=== PATIENT | female | born 1935 | race Caucasian/White ===

== ENCOUNTER 2016-09-16 11:50 | Emergency (ER) | payer MEDICARE, OTHER ==
[2016-09-16 12:06] VITALS: BP 108/58
--- NOTE | 2016-09-16 12:31 | EDM.PDOC ---
ED HPI GENERAL MEDICAL PROBLEM - General Chief Complaint: General Stated Complaint: FALLS Time Seen by Provider: 09/16/16 12:19 Source of Information: Reports: Patient History Limitations: Reports: No limitations - History of Present Illness INITIAL COMMENTS - FREE TEXT/NARRATIVE: Patient and her son report her having fallen 3 times last week, with the last time being Friday. She was reportedly told to come in to rule out an ischemic event. She is here today. She denies any chest pain, no SOB, no change or LOC. She was reportedly working with OT at the time of her right sided weakness. She has chronic lower back and right hip pain. I did see her in early August of 2016 for hip and back pain which resulted in limited mobility. She does still live in assisted living at [facility]. Primary doctor is Albertina Barragan at [facility]. She also reports low systolic blood pressure from time to time. She takes metoprolol BID. Onset: other (chronic) Onset Date: 09/13/16 Duration: Chronic Quality: Reports: Other Severity: moderate Improves with: Reports: None Worsens with: Reports: Movement Context: Reports: Activity Associated Symptoms: Reports: other - Related Data Allergies Allergy/AdvReac Type Severity Reaction Status Date / Time acetaminophen Allergy Cannot Verified 09/16/16 12:09 [From Lorcet ] Remember acyclovir [From Zovirax] Allergy Cannot Verified 09/16/16 12:09 Remember acyclovir sodium Allergy Cannot Verified 09/16/16 12:09 [From Zovirax] Remember amitriptyline HCl Allergy Cannot Verified 09/16/16 12:09 [From Elavil] Remember cephalexin [Cephalexin] Allergy Swollen Verified 09/16/16 12:09 Tongue dexamethasone Allergy Cannot Verified 09/16/16 12:09 Remember doxepin [Doxepin] Allergy Rash Verified 09/16/16 12:09 erythromycin base Allergy Cannot Verified 09/16/16 12:09 [Erythromycin Base] Remember haloperidol [From Haldol] Allergy Cannot Verified 09/16/16 12:09 Remember haloperidol lactate Allergy Cannot Verified 09/16/16 12:09 [From Haldol] Remember hydrochlorothiazide Allergy Cannot Verified 09/16/16 12:09 Remember hydrocodone bitartrate Allergy Cannot Verified 09/16/16 12:09 [From Lorcet ] Remember levofloxacin [From Levaquin] Allergy Cannot Verified 09/16/16 12:09 Remember lidocaine Allergy Rash Verified 09/16/16 12:09 pantoprazole sodium Allergy Cannot Verified 09/16/16 12:09 [From Protonix] Remember Penicillins Allergy Cannot Verified 09/16/16 12:09 Remember terfenadine [From Seldane] Allergy Cannot Verified 09/16/16 12:09 Remember vancomycin Allergy Cannot Verified 09/16/16 12:09 Remember aspirin AdvReac Nausea and Verified 09/16/16 12:09 Vomiting atorvastatin calcium AdvReac Leg Cramps Verified 09/16/16 12:09 [From Lipitor] butalbital [From Fiorinal] AdvReac Nausea and Verified 09/16/16 12:09 Vomiting caffeine [From Fiorinal] AdvReac Nausea and Verified 09/16/16 12:09 Vomiting doxycycline AdvReac Nausea Verified 09/16/16 12:09 ketoprofen AdvReac Nausea and Verified 09/16/16 12:09 Vomiting lovastatin AdvReac Leg Cramps Verified 09/16/16 12:09 meloxicam AdvReac Stomach Verified 09/16/16 12:09 Ache pravastatin AdvReac Leg Cramps Verified 09/16/16 12:09 Home Meds: Home Meds Albuterol [Ventolin HFA] 2 - 4 puff PO Q4H PRN 06/21/15 [History] Aspirin [Halfprin] 81 mg PO DAILY 06/21/15 [History] Calcium Citrate/Vitamin D3 [Calcium Citrate + D] 1 tab PO BID 06/21/15 [History] Carboxymethyl/Glycerin/Poly80 [Refresh Optive Advanced Drops] 1 drop EYEBOTH BID 06/21/15 [History] Cyanocobalamin (Vitamin B-12) [Vitamin B-12] 1 ml IM Q30D 06/21/15 [History] Ezetimibe [Zetia] 10 mg PO DAILY 06/21/15 [History] Fish Oil/Denhoff-3 Fatty Acids [Fish Oil 1,000 MG] 1 gm PO BID 06/21/15 [History] Fluticasone Propionate [Flonase] 1 spray NASBOTH DAILY 06/21/15 [History] LORazepam [Ativan] 0.5 mg PO BEDTIME 06/21/15 [History] Latanoprost [Xalatan 0.005% Ophth Soln] 1 drop EYELF BEDTIME 06/21/15 [History] Levothyroxine 75 mcg PO DAILY 06/21/15 [History] Mometasone Furoate [Asmanex 220 MCG] 1 puff PO DAILY 06/21/15 [History] Omeprazole [Prilosec] 20 mg PO ACBREAKFAST 06/21/15 [History] Potassium Chloride 20 meq PO TID 06/21/15 [History] risperiDONE [Risperdal] 0.25 mg PO BID 06/21/15 [History] traZODone HCl [Trazodone HCl] 0.5 tab PO BEDTIME 06/21/15 [History] Cetirizine [ZyrTEC] 5 mg PO BID 10/30/15 [History] Diltiazem HCl [Diltiazem 24Hr ER] 240 mg PO DAILY 10/30/15 [History] Venlafaxine [Effexor] 75 mg PO BID 10/30/15 [History] Nitroglycerin [Nitrostat] 0.4 mg SL Q5M PRN 11/03/15 [History] Furosemide [Lasix] 40 mg PO BIDDIURETIC #60 tablet 11/19/15 [Rx] Gabapentin [Neurontin] 300 mg PO TID #90 cap 11/19/15 [Rx] HYDROmorphone [Dilaudid] 4 mg PO Q4H PRN #20 tablet 11/19/15 [Rx] Non-Formulary Medication [NF Drug] 0 each 08/20/16 [History] Pilocarpine HCl [Salagen] 5 mg PO BID 08/20/16 [History] guaiFENesin [Mucinex] 600 mg PO BID 08/21/16 [History] traMADol [Ultram] 50 mg PO BID #60 tablet 08/22/16 [Rx] Metoprolol Tartrate [Lopressor] 50 mg PO BID 09/16/16 [History] metFORMIN HCl [Glucophage XR] 750 mg PO BID 09/16/16 [History] traMADol [Ultram] 100 mg PO ASDIRECTED 09/16/16 [History] Past Medical History HEENT History: Reports: Glaucoma Cardiovascular History: Reports: High cholesterol Respiratory History: Reports: Asthma Musculoskeletal History: Reports: Osteoarthritis, Other (see below) Other Musculoskeletal History: right back and hip pain Neurological History: Reports: Other (see below) Other Neuro History: forgetful Psychiatric History: Reports: Depression Endocrine/Metabolic History: Reports: Diabetes, type II Hematologic History: Reports: B12 deficiency - Past Surgical History HEENT Surgical History: Reports: Cataract surgery Musculoskeletal Surgical History: Reports: None Social & Family History - Family History Family Medical History: Unobtainable - Tobacco Use Smoking Status *Q: Unknown Ever Smoked Second Hand Smoke Exposure: No - Caffeine Use Caffeine Use: Reports: Coffee - Recreational Drug Use Recreational Drug Use: No ED ROS GENERAL - Review of Systems Review Of Systems: See Below Constitutional: Reports: weakness (right) HEENT: Reports: No symptoms Respiratory: Reports: no symptoms Cardiovascular: Reports: No symptoms Endocrine: Reports: no symptoms GI/Abdominal: Reports: No symptoms : Reports: no symptoms Musculoskeletal: Reports: back pain, leg pain Skin: Reports: no symptoms Neurological: Reports: numbness, tingling, difficulty walking, change in speech Psychiatric: Reports: No symptoms Hematologic/Lymphatic: Reports: no symptoms Immunologic: Reports: no symptoms ED EXAM, GENERAL - Physical Exam Exam: See Below Exam Limited By: No limitations General Appearance: alert, WD/WN, no apparent distress Eye Exam: bilateral eye: EOMI, PERRL Ears: normal TMs Throat/Mouth: Normal inspection, Normal oropharynx Head: atraumatic, normocephalic Neck: normal inspection, supple, non-tender, full range of motion Respiratory/Chest: no respiratory distress, lungs clear, normal breath sounds Cardiovascular: normal peripheral pulses, regular rate, rhythm Peripheral Pulses: 1+: posterior tibial (L), posterior tibial (R), dorsalis pedis (L), dorsalis pedis (R) GI/Abdominal: normal bowel sounds, soft, non tender Back Exam: other (limited movement and ROM due to chronic pain) Extremities: normal inspection Neurological: alert, oriented, normal cognition, sensory/motor deficit (right sided upper and lower extremity weakness, as well as slight right sided facial droop) Psychiatric: normal affect, normal mood Skin Exam: Warm, Dry, Intact Lymphatic: no adenopathy Course - Vital Signs Last Recorded V/S: Last Vital Signs Temp 37.1 C 09/16/16 11:58 Pulse 57 L 09/16/16 11:58 Resp 14 09/16/16 11:58 BP 108/58 L 09/16/16 11:58 Pulse Ox 93 L 09/16/16 11:58 Orthostatic Blood Pressure [ 103/62 Standing] Orthostatic Blood Pressure [ 108/63 Sitting] Orthostatic Blood Pressure [ 95/59 Supine] - Orders/Labs/Meds Orders: Active Orders 24 hr Category Date Time Status Head wo Cont [CT] Stat Exams 09/16/16 12:42 Ordered Saline Lock Insert [OM.PC] Routine Oth 09/16/16 12:52 Ordered Labs: Laboratory Tests 09/16/16 09/16/16 09/16/16 Range/Units 12:50 12:50 12:50 WBC 6.5 (4.0-10.0) x10^3/uL RBC 3.97 L (4.00-5.50) x10^6/uL Hgb 12.5 (12.0-16.0) g/dL Hct 38.5 (33.0-47.0) % MCV 97.0 H (78.0-93.0) fL MCH 31.5 (26.0-32.0) pg MCHC 32.5 (32.0-36.0) g/dL RDW Coeff of Rufino 14.2 (10.0-15.0) % Plt Count 234 (130-400) x10^3/uL Neut % (Auto) 59.9 (50.0-80.0) % Lymph % (Auto) 26.9 (25.0-50.0) % Morgan % (Auto) 9.0 (2.0-11.0) % Eos % (Auto) 3.7 (0.0-4.0) % Baso % (Auto) 0.5 (0.2-1.2) % PT 9.8 L (10.0-12.8) SEC INR 0.9 L (2.0-3.5) Sodium 145 (136-145) mmol/L Potassium 3.7 (3.5-5.1) mmol/L Chloride 104 (98-107) mmol/L Carbon Dioxide 33 H (21-32) mmol/L BUN 16 (7-18) mg/dL Creatinine 1.1 H (0.55-1.02) mg/dL Est Cr Clr Drug Dosing TNP Estimated GFR (MDRD) 48 Glucose 81 (74-106) mg/dL Calcium 8.3 L (8.5-10.1) mg/dL Corrected Calcium 9.34 (8.5-10.1) mg/dL Total Bilirubin 0.3 (0.2-1.0) mg/dL AST 14 L (15-37) U/L ALT 16 (14-59) U/L Alkaline Phosphatase 91 (46-116) U/L B-Natriuretic Peptide (<=450) pg/mL Total Protein 5.8 L (6.4-8.2) g/dL Albumin 2.7 L (3.4-5.0) g/dL Globulin 3.1 Albumin/Globulin Ratio 0.87 Urine Color (YELLOW) Urine Appearance (CLEAR) Urine pH (5.0-8.0) Ur Specific Purcell Urine Protein (NEGATIVE) mg/dL Urine Glucose (UA) (NEGATIVE) mg/dL Urine Ketones (NEGATIVE) mg/dL Urine Occult Blood (NEGATIVE) Urine Nitrite (NEGATIVE) Urine Bilirubin (NEGATIVE) Urine Urobilinogen (0.2) EU/dL Ur Leukocyte Esterase (NEGATIVE) Urine RBC (NOT SEEN) /HPF Urine WBC (NOT SEEN) /HPF Ur Squamous Epith Cells (NEGATIVE) /HPF Urine Bacteria (NEGATIVE) /HPF Urine Mucus (NEGATIVE) /LPF 09/16/16 09/16/16 Range/Units 12:50 13:02 WBC (4.0-10.0) x10^3/uL RBC (4.00-5.50) x10^6/uL Hgb (12.0-16.0) g/dL Hct (33.0-47.0) % MCV (78.0-93.0) fL MCH (26.0-32.0) pg MCHC (32.0-36.0) g/dL RDW Coeff of Rufino (10.0-15.0) % Plt Count (130-400) x10^3/uL Neut % (Auto) (50.0-80.0) % Lymph % (Auto) (25.0-50.0) % Morgan % (Auto) (2.0-11.0) % Eos % (Auto) (0.0-4.0) % Baso % (Auto) (0.2-1.2) % PT (10.0-12.8) SEC INR (2.0-3.5) Sodium (136-145) mmol/L Potassium (3.5-5.1) mmol/L Chloride (98-107) mmol/L Carbon Dioxide (21-32) mmol/L BUN (7-18) mg/dL Creatinine (0.55-1.02) mg/dL Est Cr Clr Drug Dosing Estimated GFR (MDRD) Glucose (74-106) mg/dL Calcium (8.5-10.1) mg/dL Corrected Calcium (8.5-10.1) mg/dL Total Bilirubin (0.2-1.0) mg/dL AST (15-37) U/L ALT (14-59) U/L Alkaline Phosphatase (46-116) U/L B-Natriuretic Peptide 471 H (<=450) pg/mL Total Protein (6.4-8.2) g/dL Albumin (3.4-5.0) g/dL Globulin Albumin/Globulin Ratio Urine Color Yellow (YELLOW) Urine Appearance Clear (CLEAR) Urine pH 7.5 (5.0-8.0) Ur Specific Purcell 1.020 Urine Protein Negative (NEGATIVE) mg/dL Urine Glucose (UA) Negative (NEGATIVE) mg/dL Urine Ketones Negative (NEGATIVE) mg/dL Urine Occult Blood Trace-intact H (NEGATIVE) Urine Nitrite Negative (NEGATIVE) Urine Bilirubin Negative (NEGATIVE) Urine Urobilinogen 0.2 (0.2) EU/dL Ur Leukocyte Esterase Moderate H (NEGATIVE) Urine RBC 0-5 (NOT SEEN) /HPF Urine WBC 5-10 H (NOT SEEN) /HPF Ur Squamous Epith Cells Rare (NEGATIVE) /HPF Urine Bacteria Few H (NEGATIVE) /HPF Urine Mucus Rare H (NEGATIVE) /LPF Meds: Medications Discontinued Medications Generic Name Dose Route Start Last Admin Trade Name Freq PRN Reason Stop Dose Admin Sodium Chloride 500 mls @ 500 mls/hr 09/16/16 12:52 09/16/16 13:26 Normal Saline IV 09/16/16 13:51 500 mls/hr ONETIME ONE Administration Sodium Chloride 10 ml 09/16/16 12:52 09/16/16 13:27 Saline Flush FLUSH 10 ml ASDIRECTED PRN Administration Keep Vein Open Departure - Departure Time of Disposition: 14:37 Disposition: Home, Self-Care 01 Condition: good Clinical Impression: UTI, Urinary tract infectious disease Instructions: Urinary Tract Infection, Adult, [id number] Referrals: Albertina Barragan, [Primary Care Provider] - Forms: ED Department Discharge Additional Instructions: Your CT scan was negative for any signs of an acute or subactue stoke. Normal aging process identified You do have a urinary tract infection You are going to have to follow up with your primary doctor regarding the falling and dizziness as there is not anything we could find in the ER that would be causing this on a life threatening or urgent basis. Stay hydrated and drink fluids as needed. You may need to consider moving to the nursing center where you can get additional services and help. Please don't hesitate to call us with any questions, comments, or concerns. - Problem List & Annotations (1) UTI, Urinary tract infectious disease SNOMED Code(s): 38150271 Code(s): N39.0 - URINARY TRACT INFECTION, SITE NOT SPECIFIED Status: Acute Priority: Low - Problem List Review Problem List Initiated/Reviewed/Updated: Yes - My Orders Last 24 Hours: My Active Orders 09/16/16 12:42 Head wo Cont [CT] Stat 09/16/16 12:52 Saline Lock Insert [OM.PC] Routine - Assessment/Plan Last 24 Hours: My Active Orders 09/16/16 12:42 Head wo Cont [CT] Stat 09/16/16 12:52 Saline Lock Insert [OM.PC] Routine Assessment:: urinary tract infection Plan: Your CT scan was negative for any signs of an acute or subactue stoke. Normal aging process identified You do have a urinary tract infection You are going to have to follow up with your primary doctor regarding the falling and dizziness as there is not anything we could find in the ER that would be causing this on a life threatening or urgent basis. Stay hydrated and drink fluids as needed. You may need to consider moving to the nursing center where you can get additional services and help. Please don't hesitate to call us with any questions, comments, or concerns.
[2016-09-16 12:52] LABS: BASOPHILS PERCENT AUTO 0.5 % (0.2-1.2); EOSINOPHILS PERCENT AUTO 3.7 % (0.0-4.0); HEMATOCRIT 38.5 % (33.0-47.0); HEMOGLOBIN 12.5 g/dL (12.0-16.0); LYMPHOCYTES PERCENT AUTO 26.9 % (25.0-50.0); MEAN CORPUSCULAR HEMOGLOBIN 31.5 pg (26.0-32.0); MEAN CORPUSCULAR HGB CONC 32.5 g/dL (32.0-36.0); NEUTROPHILS PERCENT AUTO 59.9 % (50.0-80.0); RDW CV 14.2 % (10.0-15.0); RED BLOOD CELL COUNT 3.97 x10^6/uL (4.00-5.50)
[2016-09-16] MEDS ORDERED: Sodium Chloride 0.9% 500 ML IV ONE (12:52)
[2016-09-16] MEDS ORDERED: Sodium Chloride 0.9% 10 ML Syringe FLUSH PRN (12:52)
[2016-09-16 13:09] LABS: INR 0.9 (2.0-3.5); PROTHROMBIN TIME 9.8 SEC (10.0-12.8)
[2016-09-16 13:10] LABS: APPEARANCE,URINE CLEAR (CLEAR); BILIRUBIN,URINE NEGATIVE (NEGATIVE); GLUCOSE,URINE NEGATIVE (NEGATIVE); KETONES,URINE NEGATIVE (NEGATIVE); LEUKOCYTE ESTERASE,URINE MODERATE (NEGATIVE); NITRITE,URINE NEGATIVE (NEGATIVE); OCCULT BLOOD,URINE TRACE-INTACT (NEGATIVE); PH,URINE 7.5 (5.0-8.0); PROTEIN,URINE NEGATIVE (NEGATIVE); UROBILINOGEN,URINE 0.2 EU/dL (0.2)
[2016-09-16 13:19] LABS: BACTERIA,URINE FEW /HPF (NEGATIVE); MUCUS,URINE RARE /LPF (NEGATIVE); RBC,URINE 0-5 /HPF (NOT SEEN)
[2016-09-16 13:28] LABS: A/G RATIO 0.87; ALBUMIN 2.7 g/dL (3.4-5.0); ALKALINE PHOSPHATASE 91 U/L (46-116); BILIRUBIN TOTAL 0.3 mg/dL (0.2-1.0); CALCIUM 8.3 mg/dL (8.5-10.1); CHLORIDE,CL 104 mmol/L (98-107); CORRECTED CALCIUM 9.34 mg/dL (8.5-10.1); CREATININE 1.1 mg/dL (0.55-1.02); ESTIMATED GFR 48; GLUCOSE RANDOM 81 mg/dL (74-106)
== END 2016-09-16 14:15 | disposition home or self-care (01) ==
LOC: VM.ED 11:50
DX: N39.0 Urinary tract infection, site not specified (principal); F32.9 Major depressive disorder, single episode, unspecified; E11.9 Type 2 diabetes mellitus without complications; J45.909 Unspecified asthma, uncomplicated; Z88.8 Allergy status to other drugs, medicaments and biological substances; Z88.6 Allergy status to analgesic agent; Z88.0 Allergy status to penicillin; Z79.82 Long term (current) use of aspirin; Z79.899 Other long term (current) drug therapy; E78.00 Pure hypercholesterolemia, unspecified
CPT/HCPCS: 36415; 70450; 80053; 81001; 83880; 85025; 85610; 96360; 99284; J7040; J7050; 99282-GF

== ENCOUNTER 2016-09-17 08:20 | Outpatient (CLI) | payer MEDICARE, OTHER ==
[2016-09-17] MEDS ORDERED: Iopamidol 408 MG/ML 20 ML SDV ONE (10:08)
[2016-09-17] MEDS ORDERED: Bupivacaine 0.25% 30 ML SDV ONE (10:08)
[2016-09-17] MEDS ORDERED: Triamcinolone Acetonide 40 MG/ML 1 ML MDV ONE (10:08)
[2016-09-17 10:57] VITALS: BP 123/63
--- NOTE | 2016-09-17 17:21 | PROC ---
EVALUATION SUBJECTIVE: This patient returns today after she was last seen in August of 2015 for similar SI joint problems. She has been doing pretty well up until an unspecified time ago as the patient is not really sure when it began. She did have a fall during the last week and she had pain prior to that as the patient can tell me. She was hospitalized and then discharged. She complains of discomfort in the right greater than left SI joint pain. She denies any radiation, tingling, or numbness. She does say that she has some weakness on the right side which may have contributed to her fall, but she said mostly that it is an increase in discomfort when she bears weight on that. She told me that her pain today right now is about 2 to 3/10. The patient is in a semi-recumbent position. She said that seems to work well for her. At its worst, it gets to be 8/10 to 10/10. Usually she notices that more when somebody else is assisting her. She says that lying flat or sitting in a chair seems to make things worse, particularly in the extended period. She does have improvement of this pain when she is sitting in her [id number] chair, which is a recliner, which seems to help quite a bit as well as warm baths or showers and TENS unit when she was in the hospital. Pain is 0/10 at its best. She says the pain can go away if she is in the right position and does not have any extraneous activity. The patient says that she is also having some pain in the right hip joint as well that has been injected in the past, but she says the pain in her back is worse. She also claims to have some discomfort on the left hand side, but she says that is much more tolerable. She denies any paresthesia or dermatome involvement. Nothing goes down into her thighs or back of the leg at all. OBJECTIVE: This is a pleasant 81-year-old female who has some slight difficulty remembering things. She is alert and oriented. She does remember who I was as we have treated her in the past. She did joke with me. I did not have her walk as she is having quite a bit of difficulty and she uses mostly her wheelchair on transferring. I did not have her do any axial bending for the same reason. I did do Tamika's exam on her, which was positive on the right hand side, negative on the left. Pelvic distraction was slightly positive on the right. Gaenslen's was positive on the right as well, negative on the left. Alhaji test was positive on the right hand side. She does have SI joint tenderness and she indicates by pointing that that is the area that is uncomfortable for her and she does indicate the right side, not the left. I did not find any trigger points on initial palpation. We will plan to look a little bit more comprehensively when we get into the procedure room. ASSESSMENT: The patient has right SI joint dysfunction, right SI joint arthroscopy, possible myofascial pain, possible right hip arthropathy. PLAN: Today to give her right SI joint injection. We will also look for trigger points to see if there are any and will inject those as well. Possibility of looking at doing a right hip injection as well. This would be sometime down the future. We will follow up with her between 2 to 4 weeks to see how she is doing with the right SI joint. PROCEDURE PERFORMED: Right SI joint injection with no trigger points. RADIATION: 10.3 seconds, 2.40 mGy. PROCEDURE: The patient was brought in the operating room and placed prone on the prone positioner. Knees and hips were flexed. Ankles were placed on a bolster. Abdomen was allowed to hang freely in the prone positioner. Shoulders were well supported, less than 90 degrees. Head was in the head cradle with eyes and ears clear. I brought in the C-arm squared up on the right SI joint. I tilted the C-arm slightly caudad, about 5-10 degrees, and about 22 degrees oblique to the left. I saw good entrance into the right SI joint and I targeted the lateral aspect of the sacrum in the lower one-third of the joint. I placed a clamp on the skin for targeting and placed a selvin corresponding to that. The area was then prepped in a wide prep by Belkys Galindo R.N., with ChloraPrep. I four-squared the area and placed a sterile fenestrated drape over the top. I used 1.5% Xylocaine from the kit and raised a skin wheal and then infiltrated in- line with the projected placement of the needle. I then placed a 22-gauge Chiba needle in beam and directed it toward the medial border of the SI joint. When I took images to make sure I was not targeting correctly and when I finished, I advanced the needle to the bone. At that point, I walked it off until I felt a needle to go into the joint. At that point, I stopped. I took an image, needle appeared to be in good position. I connected up to the contrast syringe which was [id number]-[id number] 200 and injected approximately 1 mL and it showed good spread along the joint and superiorly as well. That image was saved. I connected up the medication syringe which was a total volume of 4 mL, 3 mL being 0.25% Marcaine, 1 mL being 40 mg of Kenalog. I aspirated no blood, CSF was noted. I then began injection. I injected approximately 3 mL into the joint itself. I removed the needle about 1 mm and injected both the medial and the lateral border of the SI joint with about 0.5 mL divided and then removed the needle and advanced it superiorly approximately 1 cm into the joint line there and checked the remaining 0.5 mL. I looked for trigger points and I was unable to locate any, so the patient was room returned to the cart. She was brought back to the preop holding area. Vital signs were monitored. No untoward effects were noted. The patient reported that she was having no discomfort at this time. She did have a little bit of discomfort on position change, but it had improved. We will double check with her and see how she is doing at a later time. Thank you very much for this consult. CK: 09/17/2016 10:56:28 MODL: 09/17/2016 16:55:43 /[id number]
== END 2016-09-17 11:25 | disposition home or self-care (01) ==
LOC: VM.PAIN 08:20
PROVIDERS: ATTEND Nurse Anesthetist, Certified Registered
DX: M53.3 Sacrococcygeal disorders, not elsewhere classified (principal); M79.1 Myalgia; I67.82 Cerebral ischemia
CPT/HCPCS: 27096; G0259; J3301

== ENCOUNTER 2017-05-10 23:50 | Emergency (ER) | payer MEDICARE, OTHER ==
[2017-05-11 01:06] LABS: CHLORIDE,CL 102 mmol/L (98-107); SODIUM,NA 140 mmol/L (136-145)
[2017-05-11 01:27] VITALS: BP 156/78
--- NOTE | 2017-05-15 09:56 | ER ---
Date of Service: 05/10/2017 SUBJECTIVE: Rebekah presents to the emergency room via EMS. She was on the toilet at the [facility] and developed a stabbing type chest pain. The patient's blood pressure was checked and was found to be approximately 108 systolic. She was given a dose of sublingual nitroglycerin and her blood pressure dropped to 66 and she had a syncopal episode. EMS was summoned. On arrival to the emergency room, they reported that her blood pressure had improved to 139/65. The patient states that her chest discomfort had resolved and she offered no complaints on arrival. PAST MEDICAL HISTORY: 1. Osteoarthritis. 2. Asthma. 3. Dyslipidemia. 4. Type 2 diabetes mellitus. 5. Depression. 6. B12 deficiency. MEDICATIONS: Please see nurse's notes. ALLERGIES: 1. Acetaminophen. 2. Acyclovir. 3. Amitriptyline. 4. Amoxicillin. 5. Cephalexin. 6. Clavulanic acid. 7. Dexamethasone. 8. Doxepin. 9. Erythromycin. 10.Haldol. 11.Hydrochlorothiazide. 12.Hydrocodone. 13.Haldol. 14.Levofloxacin. 15.Lidocaine. 16.Protonix. 17.Seldane. 18.Vancomycin. 19.Aspirin. 20.Atorvastatin. 21.Fiorinal. 22.Caffeine. 23.Doxycycline. 24.Ketoprofen. 25.Meloxicam. 26.Pravastatin. REVIEW OF SYSTEMS: Denies any chest pain or shortness of breath. She states that her abdominal pain and lower chest pain has resolved. She denies any lightheadedness. PHYSICAL EXAMINATION: General: This is an 82-year-old female patient, in no acute distress. Vital Signs: Blood pressure is 125/59, respiratory rate 16, O2 saturations 93% on room air, heart rate is 65. Skin: Warm, pink, and dry. HEENT: Mouth, oral mucosa is moist. Lungs: Clear to auscultation. Heart: Regular rate and rhythm. Abdomen: Soft, nontender. There are no masses noted. There is no hepatosplenomegaly noted. Extremities: Without edema. Neurologic: The patient is alert and oriented, answers all questions appropriately. Her speech is fluent. Her gait is within normal limits. DIAGNOSTIC DATA: A 12-lead EKG was obtained showing a sinus rhythm without any acute ST or T-wave changes. One-view chest x-ray was obtained. There was no evidence of any acute pathology. LABORATORY DATA: WBC is 6.9, hemoglobin is 11.7, platelets are 190. Coags; PT is 9.6, INR is 0.9. Sodium is 140, potassium is 3.8, chloride is 102, bicarb is 3, BUN is 20, creatinine is 1.2, GFR is 43, glucose is 145, calcium is 9.0, corrected calcium is 10.04, total bilirubin is 1.2. AST is 1940, ALT is 244, alkaline phosphatase is 307, troponin is 0.00, total protein is 5.7. ASSESSMENT: 1. Syncope. 2. Chest and epigastric pain, resolved. 3. Hypotension secondary to administration of nitroglycerin. 4. Markedly elevated liver function tests. PLAN: I did contact Albertina Barragan who is this patient's primary care provider and discussed the case with her. We did stop her metformin at this time and we will have her follow up with Albertina Barragan in approximately 5-7 days for recheck of her liver function tests. I did discuss findings with the patient's family. She will require a right upper quadrant ultrasound. All questions were answered. MWK: 05/14/2017 13:29:07 MODL: 05/14/2017 20:52:09 /[id number]
== END 2017-05-11 01:51 | disposition home or self-care (01) ==
LOC: VM.ED 23:50
DX: R07.9 Chest pain, unspecified (principal); R55 Syncope and collapse; R10.13 Epigastric pain; I95.2 Hypotension due to drugs; T46.3X5A Adverse effect of coronary vasodilators, initial encounter; R79.89 Other specified abnormal findings of blood chemistry; M19.90 Unspecified osteoarthritis, unspecified site; J45.909 Unspecified asthma, uncomplicated; E78.5 Hyperlipidemia, unspecified; E11.9 Type 2 diabetes mellitus without complications; F32.9 Major depressive disorder, single episode, unspecified
CPT/HCPCS: 36415; 71010; 80053; 84484; 85025; 85610; 93005; 99284-GF; 99285

== ENCOUNTER 2018-01-18 16:10 | Emergency (ER) | payer MEDICARE, OTHER, MEDICAID ==
[2018-01-18] MEDS ORDERED: Sodium Chloride 0.9% 10 ML Syringe FLUSH PRN (16:56)
--- NOTE | 2018-01-18 17:00 | EDM.PDOC ---
ED HPI GENERAL MEDICAL PROBLEM - General Chief Complaint: Chest Pain Stated Complaint: Chest Pain Time Seen by Provider: 01/18/18 16:13 Source of Information: Reports: Patient, EMS Notes Reviewed, RN, RN Notes Reviewed History Limitations: Reports: No Limitations - History of Present Illness INITIAL COMMENTS - FREE TEXT/NARRATIVE: Patient is brought to the ED at [facility] via EMS for chest pain that started while the patient was doing rope pulling exercising at the [employer]. Patient states she was doing strengthening exercise when she felt the pain. It is more over the right chest wall area and it is reproducible. Patient does not have any SOB, really no other symptoms. Patient denies any back pain. No N/V/D. No focal neurological deficits that are new. Onset: Today, Sudden Onset Date: 01/18/18 Context: Reports: Exercise Associated Symptoms: Reports: No Other Symptoms Treatments SAP DIRECTOR: Reports: See EMS Report - Related Data Allergies Allergy/AdvReac Type Severity Reaction Status Date / Time acetaminophen Allergy Cannot Verified 01/18/18 16:42 [From Lorcet 10] Remember acyclovir [From Zovirax] Allergy Cannot Verified 01/18/18 16:42 Remember acyclovir sodium Allergy Cannot Verified 01/18/18 16:42 [From Zovirax] Remember adhesive tape Allergy Rash Verified 01/18/18 16:42 amitriptyline [From Elavil] Allergy Cannot Verified 01/18/18 16:42 Remember amitriptyline HCl Allergy Cannot Verified 01/18/18 16:42 [From Elavil] Remember amoxicillin [From Augmentin] Allergy Cannot Verified 01/18/18 16:42 Remember cephalexin [Cephalexin] Allergy Swollen Verified 01/18/18 16:42 Tongue clavulanic acid Allergy Cannot Verified 01/18/18 16:42 [From Augmentin] Remember dexamethasone Allergy Cannot Verified 01/18/18 16:42 Remember doxepin [Doxepin] Allergy Rash Verified 01/18/18 16:42 erythromycin base Allergy Cannot Verified 01/18/18 16:42 [Erythromycin Base] Remember haloperidol [From Haldol] Allergy Cannot Verified 01/18/18 16:42 Remember haloperidol lactate Allergy Cannot Verified 01/18/18 16:42 [From Haldol] Remember hydrochlorothiazide Allergy Cannot Verified 01/18/18 16:42 Remember hydrocodone bitartrate Allergy Cannot Verified 01/18/18 16:42 [From Lorcet ] Remember levofloxacin [From Levaquin] Allergy Cannot Verified 01/18/18 16:42 Remember lidocaine Allergy Rash Verified 01/18/18 16:42 pantoprazole sodium Allergy Cannot Verified 01/18/18 16:42 [From Protonix] Remember Penicillins Allergy Cannot Verified 01/18/18 16:42 Remember terfenadine [From Seldane] Allergy Cannot Verified 01/18/18 16:42 Remember vancomycin Allergy Cannot Verified 01/18/18 16:42 Remember aspirin AdvReac Nausea and Verified 01/18/18 16:42 Vomiting atorvastatin calcium AdvReac Leg Cramps Verified 01/18/18 16:42 [From Lipitor] butalbital [From Fiorinal] AdvReac Nausea and Verified 01/18/18 16:42 Vomiting caffeine [From Fiorinal] AdvReac Nausea and Verified 01/18/18 16:42 Vomiting doxycycline AdvReac Nausea Verified 01/18/18 16:42 ketoprofen AdvReac Nausea and Verified 01/18/18 16:42 Vomiting lovastatin AdvReac Leg Cramps Verified 01/18/18 16:42 meloxicam AdvReac Stomach Verified 01/18/18 16:42 Ache pravastatin AdvReac Leg Cramps Verified 01/18/18 16:42 Home Meds: Home Meds Albuterol [Ventolin HFA] 2 puff PO Q4H PRN 06/21/15 [History] Aspirin [Halfprin] 81 mg PO DAILY 06/21/15 [History] Carboxymethyl/Glycerin/Poly80 [Refresh Optive Advanced Drops] 1 drop EYEBOTH QID 06/21/15 [History] Cyanocobalamin (Vitamin B-12) [Vitamin B-12] 1 ml IM Q30D 06/21/15 [History] Fluticasone Propionate [Flonase] 1 spray NASBOTH DAILY PRN 06/21/15 [History] LORazepam [Ativan] 0.25 mg PO Q2D 06/21/15 [History] Latanoprost [Xalatan 0.005% Ophth Soln] 1 drop EYELF BEDTIME 06/21/15 [History] Levothyroxine 75 mcg PO DAILY 06/21/15 [History] Mometasone Furoate [Asmanex 220 MCG] 1 puff PO DAILY 06/21/15 [History] Omeprazole [Prilosec] 20 mg PO ACBREAKFAST 06/21/15 [History] Potassium Chloride 30 meq PO TID 06/21/15 [History] risperiDONE [Risperdal] 0.25 mg PO DAILY 06/21/15 [History] traZODone HCl [Trazodone HCl] 25 mg PO BEDTIME 06/21/15 [History] Cetirizine [ZyrTEC] 5 mg PO DAILY 10/30/15 [History] Diltiazem HCl [Diltiazem 24Hr ER] 240 mg PO DAILY 10/30/15 [History] Venlafaxine [Effexor] 75 mg PO BID 10/30/15 [History] Nitroglycerin [Nitrostat] 0.4 mg SL Q5M PRN 11/03/15 [History] Gabapentin [Neurontin] 300 mg PO TID #90 cap 11/19/15 [Rx] guaiFENesin [Mucinex] 600 mg PO BID 08/21/16 [History] Metoprolol Tartrate [Lopressor] 75 mg PO BID 09/16/16 [History] traMADol [Ultram] 100 mg PO DAILY@14 09/16/16 [History] Bisacodyl 5 mg PO DAILY PRN 01/21/17 [History] HYDROmorphone [Dilaudid] 2 mg PO Q4H PRN 01/21/17 [History] Ipratropium [place] 2 spray NS TID 01/21/17 [History] Polyethylene Glycol 3350 [MiraLAX] 17 gm PO DAILY 01/21/17 [History] Bisacodyl [Biscolax] 10 mg RECTAL DAILY PRN 08/27/17 [History] Calcium Carbonate [Tums] 400 mg PO QID PRN 08/27/17 [History] Calcium Citrate/Vitamin D3 [Calcium Citrate + D] 1 tab PO BIDMEALS 08/27/17 [ History] Cyanocobalamin (Vitamin B-12) [Cyanocobalamin Injection] 1,000 mcg IM Q30D 08/27 [History] Furosemide [Lasix] 60 mg PO BIDDIURETIC 08/27/17 [History] traMADol [Ultram] 50 mg PO BID@08/27/17 [History] Carbidopa/Levodopa [Carbidopa-Levodopa 25-100 Tab] 1 tab PO TID #90 tablet 08/28 [Rx] Magnesium Oxide 400 mg PO DAILY #30 tablet 08/28/17 [Rx] Acetaminophen 325 mg PO Q4H PRN 01/18/18 [History] Cranberry 400 mg PO TID 01/18/18 [History] Melatonin 3 mg PO DAILY 01/18/18 [History] Metolazone 2.5 mg PO DAILY PRN 01/18/18 [History] Past Medical History HEENT History: Reports: Glaucoma Cardiovascular History: Reports: CAD, High Cholesterol Respiratory History: Reports: Asthma Gastrointestinal History: Reports: GERD, Irritable Bowel Syndrome Musculoskeletal History: Reports: Osteoarthritis, Other (See Below) Other Musculoskeletal History: right back and hip pain Neurological History: Reports: Other (See Below) Other Neuro History: forgetful Psychiatric History: Reports: Depression Endocrine/Metabolic History: Reports: Diabetes, Type II, Hypothyroidism Hematologic History: Reports: B12 Deficiency - Past Surgical History HEENT Surgical History: Reports: Cataract Surgery Social & Family History - Family History Family Medical History: Unobtainable - Tobacco Use Smoking Status *Q: Unknown Ever Smoked Second Hand Smoke Exposure: No - Caffeine Use Caffeine Use: Reports: Coffee - Recreational Drug Use Recreational Drug Use: No - Living Situation & Occupation Living situation: Reports: Assisted Living Occupation: Retired ED ROS GENERAL - Review of Systems Review Of Systems: See Below Constitutional: Denies: Fever, Chills, Weakness Respiratory: Denies: Shortness of Breath, Cough Cardiovascular: Reports: Chest Pain. Denies: Palpitations GI/Abdominal: Denies: Abdominal Pain, Nausea, Vomiting Musculoskeletal: Denies: Back Pain Skin: Reports: No Symptoms Neurological: Reports: No Symptoms. Denies: Dizziness, Headache, Numbness, Paresthesia, Tingling ED EXAM, GENERAL - Physical Exam Exam: See Below Exam Limited By: No Limitations General Appearance: Alert, No Apparent Distress Respiratory/Chest: No Respiratory Distress, Lungs Clear, Normal Breath Sounds Cardiovascular: Regular Rate, Rhythm, Bradycardia Peripheral Pulses: 2+: Radial (L), Radial (R) GI/Abdominal: Normal Bowel Sounds, Soft, Non-Tender Neurological: Alert, Oriented Skin Exam: Warm, Dry, Intact, Normal Color Course - Vital Signs Last Recorded V/S: Last Vital Signs Temp 36.5 C 01/18/18 16:10 Pulse 49 L 01/18/18 17:25 Resp 13 01/18/18 17:25 BP 126/58 L 01/18/18 17:25 Pulse Ox 98 01/18/18 17:25 - Orders/Labs/Meds Orders: Active Orders 24 hr Category Date Time Status EKG 12 Lead [EKG Documentation Completion] [RC] STAT Care 01/18/18 16:14 Active Chest 2V [CR] Stat Exams 01/18/18 16:14 Ordered Sodium Chloride 0.9% [Saline Flush] Med 01/18/18 16:56 Active 10 ml FLUSH ASDIRECTED PRN Peripheral IV Insertion Adult [OM.PC] Routine Oth 01/18/18 16:56 Ordered Medication Orders Sodium Chloride (Saline Flush) 10 ml FLUSH ASDIRECTED PRN PRN Reason: Keep Vein Open Labs: Laboratory Tests 01/18/18 01/18/18 Range/Units 16:54 16:54 WBC 8.5 (4.0-10.0) x10^3/uL RBC 3.83 L (4.00-5.50) x10^6/uL Hgb 12.5 (12.0-16.0) g/dL Hct 38.3 (33.0-47.0) % MCV 100.0 H D (78.0-93.0) fL MCH 32.6 H (26.0-32.0) pg MCHC 32.6 (32.0-36.0) g/dL RDW Coeff of Rufino 13.5 (10.0-15.0) % Plt Count 257 (130-400) x10^3/uL Neut % (Auto) 60.7 (50.0-80.0) % Lymph % (Auto) 24.4 L (25.0-50.0) % [place] % (Auto) 10.2 (2.0-11.0) % Eos % (Auto) 4.1 H (0.0-4.0) % Baso % (Auto) 0.6 (0.2-1.2) % Sodium 141 (136-145) mmol/L Potassium 3.7 (3.5-5.1) mmol/L Chloride 102 (98-107) mmol/L Carbon Dioxide 30 (21-32) mmol/L Anion Gap 12.7 (10-20) mmol/L BUN 14 (7-18) mg/dL Creatinine 1.1 H (0.55-1.02) mg/dL Est Cr Clr Drug Dosing TNP Estimated GFR (MDRD) 48 Glucose 104 (74-106) mg/dL Calcium 8.2 L (8.5-10.1) mg/dL Corrected Calcium 9.00 (8.5-10.1) mg/dL Total Bilirubin 0.3 (0.2-1.0) mg/dL AST 16 (15-37) U/L ALT 9 L (14-59) U/L Alkaline Phosphatase 151 H (46-116) U/L Creatine Kinase 48 (26-192) U/L Troponin I < 0.017 (<=0.056) ng/mL Total Protein 6.2 L (6.4-8.2) g/dL Albumin 3.0 L (3.4-5.0) g/dL Globulin 3.2 Albumin/Globulin Ratio 0.94 Meds: Medications Generic Name Dose Route Start Last Admin Trade Name Freq PRN Reason Stop Dose Admin Sodium Chloride 10 ml 01/18/18 16:56 Saline Flush FLUSH ASDIRECTED PRN Keep Vein Open Departure - Departure Time of Disposition: 17:40 Disposition: DC/Tfer to SNF 03 Reason for Transfer *Q: Other Condition: Good Clinical Impression: Chest wall pain, Muscle ache Instructions: Muscle Pain, Adult, Nonspecific Chest Pain Referrals: Albertina Barragan DO [Primary Care Provider] - Forms: ED Department Discharge Additional Instructions: 1. Stay well hydrated and rest 2. Use pain medication if you need to when you exercise 3. No changes with any home medications 4. See your Primary as symptoms warrant 5. Call us for any questions/concerns - Problem List Review Problem List Initiated/Reviewed/Updated: Yes - My Orders Last 24 Hours: My Active Orders 01/18/18 16:14 EKG 12 Lead [EKG Documentation Completion] [RC] STAT Chest 2V [CR] Stat 01/18/18 16:56 Sodium Chloride 0.9% [Saline Flush] 10 ml FLUSH ASDIRECTED PRN Peripheral IV Insertion Adult [OM.PC] Routine - Assessment/Plan Last 24 Hours: My Active Orders 05/06/18 16:14 EKG 12 Lead [EKG Documentation Completion] [RC] STAT Chest 2V [CR] Stat 01/18/18 16:56 Sodium Chloride 0.9% [Saline Flush] 10 ml FLUSH ASDIRECTED PRN Peripheral IV Insertion Adult [OM.PC] Routine Assessment:: Atypical chest pain Muscle ache Plan: Labs and xray normal. Patient has remained chest pain free during her ER stay. I believe her symptoms are related to muscle strain from doing exercises. She is wanting to go home. She will follow up with her PCP as symptoms warrant
[2018-01-18 17:23] LABS: CHLORIDE,CL 102 mmol/L (98-107); SODIUM,NA 141 mmol/L (136-145)
[2018-01-18 17:26] VITALS: BP 126/58
== END 2018-01-18 18:40 ==
LOC: VM.ED 16:10
DX: R07.89 Other chest pain (principal); M79.1 Myalgia; E11.9 Type 2 diabetes mellitus without complications; E78.00 Pure hypercholesterolemia, unspecified; F32.9 Major depressive disorder, single episode, unspecified; K21.9 Gastro-esophageal reflux disease without esophagitis; M19.90 Unspecified osteoarthritis, unspecified site; E03.9 Hypothyroidism, unspecified; I25.10 Atherosclerotic heart disease of native coronary artery without angina pectoris; Z79.82 Long term (current) use of aspirin; Z79.84 Long term (current) use of oral hypoglycemic drugs; Z79.899 Other long term (current) drug therapy; Z88.8 Allergy status to other drugs, medicaments and biological substances; Z88.1 Allergy status to other antibiotic agents; Z88.6 Allergy status to analgesic agent; Z91.09 Other allergy status, other than to drugs and biological substances; Z91.018 Allergy to other foods; Z88.5 Allergy status to narcotic agent
CPT/HCPCS: 36415; 71046; 80053; 82550; 84484; 85025; 93005; 93010; 99283-GF; 99285

== ENCOUNTER 2019-02-10 07:25 | Inpatient (IN) | payer MEDICARE, OTHER, MEDICAID ==
--- NOTE | 2019-02-10 07:57 | EDM.PDOC ---
ED HPI GENERAL MEDICAL PROBLEM - General Chief Complaint: General Stated Complaint: Hypotension; AMS Time Seen by Provider: 02/10/19 07:25 Source of Information: Reports: Patient, EMS Notes Reviewed, Jail Records, RN, RN Notes Reviewed History Limitations: Reports: Altered Mental Status - History of Present Illness INITIAL COMMENTS - FREE TEXT/NARRATIVE: Patient is brought to the ED at [facility] via EMS for the evaluation of hypotension, AMS, and hypoxia. Last known well at the residential was last night. Patient apparently fell in her room sometime yesterday evening. She had been found on the floor by staff. long-term states the patient's blood pressure was in the upper 70's this AM. No known recent infections. Patient apparently had been complaining to nursing staff feeling nauseated. Patient had vomit around mouth upon EMS arrival. Patient was unresponsive at the residential. O2 sats 60's per EMS. Question of possible aspiration. Onset: Unknown/Unsure - Related Data Allergies Allergy/AdvReac Type Severity Reaction Status Date / Time acetaminophen Allergy Cannot Verified 02/10/19 08:09 [From Lorcet 10/650] Remember acyclovir [From Zovirax] Allergy Cannot Verified 02/10/19 08:09 Remember acyclovir sodium Allergy Cannot Verified 02/10/19 08:09 [From Zovirax] Remember adhesive tape Allergy Rash Verified 02/10/19 08:09 amitriptyline [From Elavil] Allergy Cannot Verified 02/10/19 08:09 Remember amitriptyline HCl Allergy Cannot Verified 02/10/19 08:09 [From Elavil] Remember amoxicillin [From Augmentin] Allergy Cannot Verified 02/10/19 08:09 Remember cephalexin [Cephalexin] Allergy Swollen Verified 02/10/19 08:09 Tongue clavulanic acid Allergy Cannot Verified 02/10/19 08:09 [From Augmentin] Remember dexamethasone Allergy Cannot Verified 02/10/19 08:09 Remember doxepin [Doxepin] Allergy Rash Verified 02/10/19 08:09 erythromycin base Allergy Cannot Verified 02/10/19 08:09 [Erythromycin Base] Remember haloperidol [From Haldol] Allergy Cannot Verified 02/10/19 08:09 Remember haloperidol lactate Allergy Cannot Verified 02/10/19 08:09 [From Haldol] Remember hydrochlorothiazide Allergy Cannot Verified 02/10/19 08:09 Remember hydrocodone bitartrate Allergy Cannot Verified 02/10/19 08:09 [From Lorcet ] Remember levofloxacin [From Levaquin] Allergy Cannot Verified 02/10/19 08:09 Remember lidocaine Allergy Rash Verified 02/10/19 08:09 pantoprazole sodium Allergy Cannot Verified 02/10/19 08:09 [From Protonix] Remember Penicillins Allergy Cannot Verified 02/10/19 08:09 Remember terfenadine [From Seldane] Allergy Cannot Verified 02/10/19 08:09 Remember vancomycin Allergy Cannot Verified 02/10/19 08:09 Remember aspirin AdvReac Nausea and Verified 02/10/19 08:09 Vomiting atorvastatin calcium AdvReac Leg Cramps Verified 02/10/19 08:09 [From Lipitor] butalbital [From Fiorinal] AdvReac Nausea and Verified 02/10/19 08:09 Vomiting caffeine [From Fiorinal] AdvReac Nausea and Verified 02/10/19 08:09 Vomiting doxycycline AdvReac Nausea Verified 02/10/19 08:09 ketoprofen AdvReac Nausea and Verified 02/10/19 08:09 Vomiting lovastatin AdvReac Leg Cramps Verified 02/10/19 08:09 meloxicam AdvReac Stomach Verified 02/10/19 08:09 Ache pravastatin AdvReac Leg Cramps Verified 02/10/19 08:09 Home Meds: Home Meds Aspirin [Halfprin] 81 mg PO DAILY 06/21/15 [History] LORazepam [Ativan] 0.25 mg PO DAILY 06/21/15 [History] Latanoprost [Xalatan 0.005% [facility]] 1 drop EYELF BEDTIME 06/21/15 [History] Levothyroxine 75 mcg PO DAILY 06/21/15 [History] Omeprazole [Prilosec] 20 mg PO ACBREAKFAST 06/21/15 [History] Potassium Chloride 30 meq PO TID 06/21/15 [History] Venlafaxine [Effexor] 75 mg PO BID 10/30/15 [History] dilTIAZem HCl [Diltiazem 24Hr ER (Cd)] 240 mg PO DAILY 10/30/15 [History] Nitroglycerin [Nitrostat] 0.4 mg SL Q5M PRN 11/03/15 [History] Metoprolol Tartrate [Lopressor] 75 mg PO BID 09/16/16 [History] traMADol [Ultram] 100 mg PO DAILY@14 09/16/16 [History] Bisacodyl 5 mg PO DAILY PRN 01/21/17 [History] Ipratropium [place] 2 spray NASBOTH TID 01/21/17 [History] Polyethylene Glycol 3350 [MiraLAX] 17 gm PO DAILY 01/21/17 [History] Bisacodyl [Biscolax] 10 mg RECTAL DAILY PRN 08/27/17 [History] Calcium Carbonate [Tums] 1,000 mg PO QID PRN 08/27/17 [History] Cyanocobalamin (Vitamin B-12) [Cyanocobalamin Injection] 1,000 mcg IM Q30D 08/27 [History] Furosemide [Lasix] 60 mg PO BIDDIURETIC 08/27/17 [History] traMADol [Ultram] 50 mg PO BID@08,20 08/27/17 [History] Acetaminophen 650 mg PO Q4H PRN MDD 3 grams in 24 hours 01/18/18 [History] Cranberry 400 mg PO TID 01/18/18 [History] Melatonin 3 mg PO DAILY 01/18/18 [History] Carboxymethylcellulos/Glycerin [Refresh Optive Gel Eye Drops] 1 drop EYEBOTH QID 08/12/18 [History] Fluticasone Propionate [Flovent HFA 220 mcg] 1 puff PO BID 08/12/18 [History] Nystatin 1 applic TOP DAILY PRN 08/12/18 [History] Saliva Substitution Combo No.9 [Biotene] 1 spray PO TID PRN 08/12/18 [History] Simethicone [Gas Relief] 125 mg PO TID PRN 08/12/18 [History] traZODone HCl [Trazodone HCl] 12.5 mg PO DAILY 08/12/18 [History] Cetirizine HCl 5 mg PO DAILY PRN 02/10/19 [History] Gabapentin [Neurontin] 400 mg PO BID 02/10/19 [History] Gabapentin [Neurontin] 600 mg PO DAILY 02/10/19 [History] Sucralfate 1 gm PO TIDAC 02/10/19 [History] Trolamine Salicylate/Aloe Vera [Aspercreme 10% Cream] 1 applic TOP TID PRN 02/10 [History] guaiFENesin/Dextromethorphan [Tussin Dm Liquid] 10 ml PO Q4H PRN 02/10/19 [ History] Past Medical History HEENT History: Reports: Glaucoma Cardiovascular History: Reports: CAD, High Cholesterol Respiratory History: Reports: Asthma Gastrointestinal History: Reports: GERD, Irritable Bowel Syndrome Musculoskeletal History: Reports: Osteoarthritis, Other (See Below) Other Musculoskeletal History: right back and hip pain Neurological History: Reports: Other (See Below) Other Neuro History: forgetful Psychiatric History: Reports: Depression Endocrine/Metabolic History: Reports: Diabetes, Type II, Hypothyroidism Hematologic History: Reports: B12 Deficiency - Past Surgical History HEENT Surgical History: Reports: Cataract Surgery Social & Family History - Family History Family Medical History: Unobtainable - Caffeine Use Caffeine Use: Reports: Coffee - Living Situation & Occupation Living situation: Reports: Assisted Living Occupation: Retired ED ROS GENERAL - Review of Systems Review Of Systems: Unable To Obtain (Patient confused and minimally repsonsive) ED EXAM, GENERAL - Physical Exam Exam: See Below Exam Limited By: Altered Mental Status General Appearance: No Apparent Distress, Lethargic Respiratory/Chest: Decreased Breath Sounds, Crackles, Rales Cardiovascular: Normal Peripheral Pulses, Regular Rate, Rhythm Peripheral Pulses: 1+: Radial (L), Radial (R) GI/Abdominal: Soft, Non-Tender, Abnormal Bowel Sounds (Hypoactive) Extremities: Pallor Neurological: Confused, Disoriented, Slow to Respond (able to awake patient with obnoxious stimuli; confused responses; ) Skin Exam: Dry, Intact, Cool EKG INTERPRETATION EKG Date: 02/10/19 Time: 08:20 Rhythm: NSR Rate (Beats/Min): 86 [place]: Normal P-Wave: Present QRS: Normal ST-T: Normal QT: Normal [place]/PQ Interval: 0.13 Comparison: No Change Course - Vital Signs Last Recorded V/S: Last Vital Signs Temp 36.9 C 02/10/19 07:25 Pulse 85 02/10/19 10:40 Resp 24 H 02/10/19 10:40 BP 82/46 L 02/10/19 10:40 Pulse Ox 88 L 02/10/19 10:40 - Orders/Labs/Meds Orders: Active Orders 24 hr Category Date Time Status BIPAP Adult [RT BiPAP/CPAP] [RC] ASDIRECTED Care 02/10/19 08:03 Active EKG 12 Lead [EKG Documentation Completion] [] STAT Care 02/10/19 07:50 Active Aranda Catheter Insertion [Insert Urinary Catheter] [OM. Care 02/10/19 08:30 Ordered PC] Q24H Oxygen Therapy Adult [Oxygen Therapy] [RC] ASDIRECTED Care 02/10/19 09:20 Active Urinary Catheter Assessment [RC] ASDIRECTED Care 02/10/19 10:31 Active CULTURE BLOOD [BC] Stat Lab 02/10/19 07:32 Results CULTURE BLOOD [BC] Stat Lab 02/10/19 07:58 Results Blood Culture x2 Reflex Set [OM.PC] Stat Oth 02/10/19 07:31 Ordered Labs: Laboratory Tests 02/10/19 02/10/19 02/10/19 Range/Units 07:41 07:41 07:41 WBC 14.7 H (4.0-10.0) x10^3/uL RBC 4.13 (4.00-5.50) x10^6/uL Hgb 12.9 D (12.0-16.0) g/dL Hct 40.5 (33.0-47.0) % MCV 98.1 H (78.0-93.0) fL MCH 31.2 (26.0-32.0) pg MCHC 31.9 L (32.0-36.0) g/dL RDW Coeff of Rufino 16.5 H (10.0-15.0) % Plt Count 260 (130-400) x10^3/uL Add Manual Diff Yes Neutrophils % (Manual) 58 (50-80) % Band Neutrophils % 12 H (0-6) % Lymphocytes % (Manual) 10 L (25-50) % Monocytes % (Manual) 4 (2-11) % Eosinophils % (Manual) 1 (0-4) % Metamyelocytes % 10 H (0) % Myelocytes % 5 H (0) % POC ABG pH (7.35-7.45) POC ABG pCO2 (35-45) mmHG POC ABG pO2 (80-105) mmHG POC ABG HCO3 (22-26) mmol/L POC ABG Total CO2 (23-27) mmol/L POC ABG O2 Sat (95-98) % POC ABG Base Excess (-2-3) mmol/L POC FiO2 Sodium 144 (136-145) mmol/L Potassium 3.8 (3.5-5.1) mmol/L Chloride 105 (98-107) mmol/L Carbon Dioxide 23 (21-32) mmol/L Anion Gap 19.8 (10-20) mmol/L BUN 29 H (7-18) mg/dL Creatinine 2.4 H D (0.55-1.02) mg/dL Est Cr Clr Drug Dosing TNP Estimated GFR (MDRD) 19 Glucose 166 H (74-106) mg/dL Lactic Acid 8.5 H* (0.4-2.0) mmol/L Calcium 8.7 (8.5-10.1) mg/dL Corrected Calcium 10.06 (8.5-10.1) mg/dL Magnesium (1.8-2.4) mg/dL Total Bilirubin 1.4 H (0.2-1.0) mg/dL AST 70 H (15-37) U/L ALT 56 (14-59) U/L Alkaline Phosphatase 205 H (46-116) U/L Troponin I (<=0.056) ng/mL C-Reactive Protein 7.8 H (<=0.9) mg/dL NT-Pro-B Natriuret Pep (<=450) pg/mL Total Protein 5.8 L (6.4-8.2) g/dL Albumin 2.3 L (3.4-5.0) g/dL Globulin 3.5 Albumin/Globulin Ratio 0.66 POC Result Comm Urine Color (YELLOW) Urine Appearance (CLEAR) Urine pH (5.0-8.0) Ur Specific Strawberry Urine Protein (NEGATIVE) mg/dL Urine Glucose (UA) (NEGATIVE) mg/dL Urine Ketones (NEGATIVE) mg/dL Urine Occult Blood (NEGATIVE) Urine Nitrite (NEGATIVE) Urine Bilirubin (NEGATIVE) Urine Urobilinogen (0.2) EU/dL Ur Leukocyte Esterase (NEGATIVE) Urine RBC (NOT SEEN) /HPF Urine WBC (NOT SEEN) /HPF Ur Squamous Epith Cells (NEGATIVE) /HPF Amorphous Sediment Urine Bacteria (NEGATIVE) /HPF Hyaline Casts (NEGATIVE) /HPF Granular Casts (NEGATIVE) /HPF Urine Mucus (NEGATIVE) /LPF 02/10/19 02/10/19 02/10/19 Range/Units 07:41 07:41 07:54 WBC (4.0-10.0) x10^3/uL RBC (4.00-5.50) x10^6/uL Hgb (12.0-16.0) g/dL Hct (33.0-47.0) % MCV (78.0-93.0) fL MCH (26.0-32.0) pg MCHC (32.0-36.0) g/dL RDW Coeff of Rufino (10.0-15.0) % Plt Count (130-400) x10^3/uL Add Manual Diff Neutrophils % (Manual) (50-80) % Band Neutrophils % (0-6) % Lymphocytes % (Manual) (25-50) % Monocytes % (Manual) (2-11) % Eosinophils % (Manual) (0-4) % Metamyelocytes % (0) % Myelocytes % (0) % POC ABG pH 7.323 L (7.35-7.45) POC ABG pCO2 40 (35-45) mmHG POC ABG pO2 35 L* (80-105) mmHG POC ABG HCO3 21 L (22-26) mmol/L POC ABG Total CO2 22 L (23-27) mmol/L POC ABG O2 Sat 62 L (95-98) % POC ABG Base Excess -5 L (-2-3) mmol/L POC FiO2 0.21 Sodium (136-145) mmol/L Potassium (3.5-5.1) mmol/L Chloride (98-107) mmol/L Carbon Dioxide (21-32) mmol/L Anion Gap (10-20) mmol/L BUN (7-18) mg/dL Creatinine (0.55-1.02) mg/dL Est Cr Clr Drug Dosing Estimated GFR (MDRD) Glucose (74-106) mg/dL Lactic Acid (0.4-2.0) mmol/L Calcium (8.5-10.1) mg/dL Corrected Calcium (8.5-10.1) mg/dL Magnesium 1.9 (1.8-2.4) mg/dL Total Bilirubin (0.2-1.0) mg/dL AST (15-37) U/L ALT (14-59) U/L Alkaline Phosphatase (46-116) U/L Troponin I < 0.017 (<=0.056) ng/mL C-Reactive Protein (<=0.9) mg/dL NT-Pro-B Natriuret Pep 2000 H (<=450) pg/mL Total Protein (6.4-8.2) g/dL Albumin (3.4-5.0) g/dL Globulin Albumin/Globulin Ratio POC Result Comm Called critical res Urine Color (YELLOW) Urine Appearance (CLEAR) Urine pH (5.0-8.0) Ur Specific Strawberry Urine Protein (NEGATIVE) mg/dL Urine Glucose (UA) (NEGATIVE) mg/dL Urine Ketones (NEGATIVE) mg/dL Urine Occult Blood (NEGATIVE) Urine Nitrite (NEGATIVE) Urine Bilirubin (NEGATIVE) Urine Urobilinogen (0.2) EU/dL Ur Leukocyte Esterase (NEGATIVE) Urine RBC (NOT SEEN) /HPF Urine WBC (NOT SEEN) /HPF Ur Squamous Epith Cells (NEGATIVE) /HPF Amorphous Sediment Urine Bacteria (NEGATIVE) /HPF Hyaline Casts (NEGATIVE) /HPF Granular Casts (NEGATIVE) /HPF Urine Mucus (NEGATIVE) /LPF 02/10/19 Range/Units 08:35 WBC (4.0-10.0) x10^3/uL RBC (4.00-5.50) x10^6/uL Hgb (12.0-16.0) g/dL Hct (33.0-47.0) % MCV (78.0-93.0) fL MCH (26.0-32.0) pg MCHC (32.0-36.0) g/dL RDW Coeff of Rufino (10.0-15.0) % Plt Count (130-400) x10^3/uL Add Manual Diff Neutrophils % (Manual) (50-80) % Band Neutrophils % (0-6) % Lymphocytes % (Manual) (25-50) % Monocytes % (Manual) (2-11) % Eosinophils % (Manual) (0-4) % Metamyelocytes % (0) % Myelocytes % (0) % POC ABG pH (7.35-7.45) POC ABG pCO2 (35-45) mmHG POC ABG pO2 (80-105) mmHG POC ABG HCO3 (22-26) mmol/L POC ABG Total CO2 (23-27) mmol/L POC ABG O2 Sat (95-98) % POC ABG Base Excess (-2-3) mmol/L POC FiO2 Sodium (136-145) mmol/L Potassium (3.5-5.1) mmol/L Chloride (98-107) mmol/L Carbon Dioxide (21-32) mmol/L Anion Gap (10-20) mmol/L BUN (7-18) mg/dL Creatinine (0.55-1.02) mg/dL Est Cr Clr Drug Dosing Estimated GFR (MDRD) Glucose (74-106) mg/dL Lactic Acid (0.4-2.0) mmol/L Calcium (8.5-10.1) mg/dL Corrected Calcium (8.5-10.1) mg/dL Magnesium (1.8-2.4) mg/dL Total Bilirubin (0.2-1.0) mg/dL AST (15-37) U/L ALT (14-59) U/L Alkaline Phosphatase (46-116) U/L Troponin I (<=0.056) ng/mL C-Reactive Protein (<=0.9) mg/dL NT-Pro-B Natriuret Pep (<=450) pg/mL Total Protein (6.4-8.2) g/dL Albumin (3.4-5.0) g/dL Globulin Albumin/Globulin Ratio POC Result Comm Urine Color Dark yellow H (YELLOW) Urine Appearance Slightly cloudy H (CLEAR) Urine pH 6.5 (5.0-8.0) Ur Specific Straw[place] 1.015 Urine Protein Trace H (NEGATIVE) mg/dL Urine Glucose (UA) Negative (NEGATIVE) mg/dL Urine Ketones Negative (NEGATIVE) mg/dL Urine Occult Blood Negative (NEGATIVE) Urine Nitrite Negative (NEGATIVE) Urine Bilirubin Negative (NEGATIVE) Urine Urobilinogen 0.2 (0.2) EU/dL Ur Leukocyte Esterase Negative (NEGATIVE) Urine RBC 0-5 (NOT SEEN) /HPF Urine WBC 0-5 (NOT SEEN) /HPF Ur Squamous Epith Cells Few H (NEGATIVE) /HPF Amorphous Sediment Few Urine Bacteria Few H (NEGATIVE) /HPF Hyaline Casts Few H (NEGATIVE) /HPF Granular Casts Few H (NEGATIVE) /HPF Urine Mucus Few H (NEGATIVE) /LPF - Radiology Interpretation Free Text/Narrative:: CXR: Findings consistent with CHF exacerbation See scanned report in EMR for details CT Chest/Abd/Pelvis: Extensive bilateral pneumonia; nonspecific moderate bowel distention See scanned report in EMR CT Results Date: 02/10/19 CT Results Time: 10:22 Departure - Departure Time of Disposition: 11:02 Disposition: Admitted As Inpatient 66 Condition: Poor Clinical Impression: Pneumonia Qualifiers: Pneumonia type: due to unspecified organism Laterality: bilateral Lung location : upper lobe of lung Qualified Code(s): J18.1 - Lobar pneumonia, unspecified organism - Discharge Information *PRESCRIPTION DRUG MONITORING PROGRAM REVIEWED*: Not Applicable *COPY OF PRESCRIPTION DRUG MONITORING REPORT IN PATIENT BONNIE: Not Applicable ED Communication - ED Communication Date/Time Date: 02/10/19 Time Called: 09:25 - Discussed Case With (1) Discussed Case With (1): Admitting Provider Person/s Notified (1): Dilan Ybarra - Problem List Review Problem List Initiated/Reviewed/Updated: Yes - My Orders Last 24 Hours: My Active Orders 02/10/19 07:31 Blood Culture x2 Reflex Set [OM.PC] Stat 02/10/19 07:32 CULTURE BLOOD [BC] Stat 02/10/19 07:50 EKG 12 Lead [EKG Documentation Completion] [RC] STAT 02/10/19 07:58 CULTURE BLOOD [BC] Stat 02/10/19 08:03 BIPAP Adult [RT BiPAP/CPAP] [RC] ASDIRECTED 02/10/19 08:30 Aranda Catheter Insertion [Insert Urinary Catheter] [OM.PC] Q24H 02/10/19 09:20 Oxygen Therapy Adult [Oxygen Therapy] [RC] ASDIRECTED 02/10/19 10:31 Urinary Catheter Assessment [RC] ASDIRECTED - Assessment/Plan Last 24 Hours: My Active Orders 02/10/19 07:31 Blood Culture x2 Reflex Set [OM.PC] Stat 02/10/19 07:32 CULTURE BLOOD [BC] Stat 02/10/19 07:50 EKG 12 Lead [EKG Documentation Completion] [RC] STAT 02/10/19 07:58 CULTURE BLOOD [BC] Stat 02/10/19 08:03 BIPAP Adult [RT BiPAP/CPAP] [RC] ASDIRECTED 02/10/19 08:30 Aranda Catheter Insertion [Insert Urinary Catheter] [OM.PC] Q24H 02/10/19 09:20 Oxygen Therapy Adult [Oxygen Therapy] [RC] ASDIRECTED 02/10/19 10:31 Urinary Catheter Assessment [RC] ASDIRECTED Assessment:: Bilateral Pneumonia Lactic Acidosis Hypotension Plan: Case discussed with Dr. Frank Ybarra. Patient's family do not want the patient transferred to a higher level of care, therefore patient will be admitted at [facility]. Patient met sepsis criteria, however, abx therapy was not initiated because symptoms were consistent with CHF exacerbation also seen on first xray read. Therefore, further investigation with a CT scan of the chest was obtained which refuted CHF and showed bilateral pneumonia. Pharmacy was contacted due to multiple multiple abx allergies. It appears the patient has taken Azith and Rocephin in the past without problems. These medications will be given and patient watched closely.
[2019-02-10 08:29] LABS: CHLORIDE,CL 105 mmol/L (98-107); SODIUM,NA 144 mmol/L (136-145)
[2019-02-10 08:31] LABS: ANION GAP 19.8 mmol/L (10-20)
--- NOTE | 2019-02-10 09:07 | CR ---
[id number] RAD/RAD Chest PA or AP 1V EXAM: RAD Chest PA or AP 1V INDICATION: HYPOXIA. COMPARISON: August 13, 2018. DISCUSSION: Mediastinal silhouette is enlarged but stable. There is central vascular congestion with patchy airspace opacifications bilaterally. Low lung volumes. IMPRESSION: Findings consistent with congestive heart failure exacerbation. Eligio Guerra DO 02/10/19 0904 Thank you for allowing us to participate in the care of your patient.
--- NOTE | 2019-02-10 10:34 | CT ---
[id number] CT/CT Chest Abdomen Pelvis WO IV Exam: CT Chest Abdomen Pelvis WO IV Clinical Data: ABDOMINAL PAIN. HYPOXIA COMPARISON: NO PREVIOUS SIMILAR EXAM IS AVAILABLE FINDINGS: Extensive bilateral upper and lower lobe pulmonary parenchymal infiltrates are seen. There is no mediastinal mass or adenopathy. There is moderate bowel distention. There is no free air or free fluid. The gallbladder has been removed. There are extensive atheromatous calcifications. There is question of a right lower quadrant transplant kidney versus bowel mimicking such. A Aranda catheter is seen in the urinary bladder. There is also uncomplicated moderate colonic diverticular disease. The lack of IV contrast limits the study somewhat. The uterus and ovaries are not seen. The appendix appears normal. There are small to moderate renal cysts. There are degenerative changes of the spine. There are also degenerative changes of the hips. There is moderate right axillary adenopathy. Median sternotomy sutures are seen. IMPRESSION: EXTENSIVE BILATERAL PNEUMONIA. NONSPECIFIC MODERATE BOWEL DISTENTION. Brody Dash MD 02/10/19 [id number] Thank you for allowing us to participate in the care of your patient.
[2019-02-10] MEDS ORDERED: methylPREDNISolone Sodium Succinate 125 MG/2 ML SDV IVPUSH ONE (11:01)
[2019-02-10] MEDS ORDERED: cefTRIAXone 1 GM Vial IVPUSH ONE (11:01)
[2019-02-10] MEDS ORDERED: Azithromycin 500 MG in Sodium Chloride 0.9% 250 ML IV ONE (11:01)
[2019-02-10] MEDS ORDERED: Sodium Chloride 0.9% 500 ML IV ONE (11:15)
[2019-02-10] MEDS: Lactated Ringers 1,000 ML IV SCH ×3 (11:20→19:27)
--- NOTE | 2019-02-10 13:15 | PCM.HP ---
H&P History of Present Illness - General Date of Service: 02/10/19 Admit Problem/Dx: Admission Diagnosis/Problem Admission Diagnosis/Problem Pneumonia - History of Present Illness Initial Comments - Free Text/Narative: Chief complaint: Hypoxia and hypotension History of present illness: [facility] called her this morning noting patient was hypotensive altered mental status hypoxic. Blood pressure 70 systolic sats running in the 60s. Last evening she's been complaining of some nausea and may be vomiting. She was seen by physician's radiology physician assistant yesterday complaining of some GERD and possible dysphagia issues. She was given some sucralfate. Afebrile. Concern of possible aspiration in the past. Hospitalized for pneumonia about six months ago.Nonsmoker. Lives in the longterm. Past medical history: Glaucoma, anemia, osteoarthritis, parkinsonism, mood disorder, hypothyroidism, GERD, fibromyalgia, diabetes, coronary disease, borderline diastolic congestive heart failure, B-12 deficiency. Asthma. Medications: Neurontin, Zofran, Zyrtec, trazodone, Tylenol, Duca lax, toms, Carafate, potassium, tramadol, magnesium, diltiazem, Lasix, Prilosec, metoprolol , Atrovent, aspirin. Allergies: Tens of medication intolerances listed on her chart primarily to antibiotics primarily GI side effects. True allergic reactions unknown. Social history: Nonsmoker lives in longterm Review of systems, difficult to obtain. She notes minor chest discomfort. Denies any real abdominal pain currently. Physical exam: Her sats are running mid to high 80s on 100% BiPAP of 2009. She' s afebrile. She is not tachycardic her heart rate is regular. Blood pressure running 80s over 50s. She is alert and awake pleasant cooperative not tachypneic or retracting on BiPAP. Heart regular rate and rhythm. Lungs reveal diffuse crackles bilaterally. Abdomen soft nontender. Extremities warm well perfused without edema. Assessment and plan: Appears to have hyperacute pneumonitis secondary to chemical aspiration. Respiratory status miller she is on BiPAP per RT. 100% oxygen and 20/10 to obtain sats to as close as 90% as possible. We will try some Solu-Medrol. Consider DuoNeb when necessary. DO NOT INTUBATE status. Regarding aspiration would usually follow 1 of 3 patterns: "12 per cent of the patients shortly after aspiration; 62 per cent had rapid clinical and radiologic improvement, with clearing, on average, within 4.5 days; 26 per cent demonstrated rapid improvement, but then had clinical and radiographic progression associated with recovery of bacterial pathogens from the sputum and a fatal outcome in more than 60 per cent." Cardiovascularly she has hypotension which appears to be from some volume depletion and shock secondary to above. Troponin is negative. Last echo was pretty unremarkable. She received 1 L bolus in the ER. We will run maintenance LR 125 mL per hour for now. Monitor BP, lactate and renal panel. Regarding infectious disease we will do empiric Rocephin plus azithromycin. Pharmacy is concerned about numerous drug intolerances otherwise we could do Zosyn. Consider adding Flagyl but I don't think this is infectious PNA currently. Neurologically she appears to be as close to baseline as would be expected given above hypotension and hypoxia. Monitor blood sugars. Will not be getting much by mouth next couple days long she's on BiPAP. Consider bedside swallow eval if she improves in the next couple of days. I don 't think she is obstructed by abdominal CT but if continued vomiting may need to rule this out. In either case likely not a surgical candidate. Lovenox DVT prophylaxis. - Related Data Allergies/Adverse Reactions: Allergies Allergy/AdvReac Type Severity Reaction Status Date / Time acetaminophen Allergy Cannot Verified 02/10/19 08:09 [From Lorcet ] Remember acyclovir [From Zovirax] Allergy Cannot Verified 02/10/19 08:09 Remember acyclovir sodium Allergy Cannot Verified 02/10/19 08:09 [From Zovirax] Remember adhesive tape Allergy Rash Verified 02/10/19 08:09 amitriptyline [From Elavil] Allergy Cannot Verified 02/10/19 08:09 Remember amitriptyline HCl Allergy Cannot Verified 02/10/19 08:09 [From Elavil] Remember amoxicillin [From Augmentin] Allergy Cannot Verified 02/10/19 08:09 Remember cephalexin [Cephalexin] Allergy Swollen Verified 02/10/19 08:09 Tongue clavulanic acid Allergy Cannot Verified 02/10/19 08:09 [From Augmentin] Remember dexamethasone Allergy Cannot Verified 02/10/19 08:09 Remember doxepin [Doxepin] Allergy Rash Verified 02/10/19 08:09 erythromycin base Allergy Cannot Verified 02/10/19 08:09 [Erythromycin Base] Remember haloperidol [From Haldol] Allergy Cannot Verified 02/10/19 08:09 Remember haloperidol lactate Allergy Cannot Verified 02/10/19 08:09 [From Haldol] Remember hydrochlorothiazide Allergy Cannot Verified 02/10/19 08:09 Remember hydrocodone bitartrate Allergy Cannot Verified 02/10/19 08:09 [From Lorcet 10/650] Remember levofloxacin [From Levaquin] Allergy Cannot Verified 02/10/19 08:09 Remember lidocaine Allergy Rash Verified 02/10/19 08:09 pantoprazole sodium Allergy Cannot Verified 02/10/19 08:09 [From Protonix] Remember Penicillins Allergy Cannot Verified 02/10/19 08:09 Remember terfenadine [From Seldane] Allergy Cannot Verified 02/10/19 08:09 Remember vancomycin Allergy Cannot Verified 02/10/19 08:09 Remember aspirin AdvReac Nausea and Verified 02/10/19 08:09 Vomiting atorvastatin calcium AdvReac Leg Cramps Verified 02/10/19 08:09 [From Lipitor] butalbital [From Fiorinal] AdvReac Nausea and Verified 02/10/19 08:09 Vomiting caffeine [From Fiorinal] AdvReac Nausea and Verified 02/10/19 08:09 Vomiting doxycycline AdvReac Nausea Verified 02/10/19 08:09 ketoprofen AdvReac Nausea and Verified 02/10/19 08:09 Vomiting lovastatin AdvReac Leg Cramps Verified 02/10/19 08:09 meloxicam AdvReac Stomach Verified 02/10/19 08:09 Ache pravastatin AdvReac Leg Cramps Verified 02/10/19 08:09 Home Medications: Home Meds Aspirin [Halfprin] 81 mg PO DAILY 06/21/15 [History] LORazepam [Ativan] 0.25 mg PO DAILY 06/21/15 [History] Latanoprost [Xalatan 0.005% Ophth Soln] 1 drop EYELF BEDTIME 06/21/15 [History] Levothyroxine 75 mcg PO DAILY 06/21/15 [History] Omeprazole [Prilosec] 20 mg PO ACBREAKFAST 06/21/15 [History] Potassium Chloride 30 meq PO TID 06/21/15 [History] Venlafaxine [Effexor] 75 mg PO BID 10/30/15 [History] dilTIAZem HCl [Diltiazem 24Hr ER (Cd)] 240 mg PO DAILY 10/30/15 [History] Nitroglycerin [Nitrostat] 0.4 mg SL Q5M PRN 11/03/15 [History] Metoprolol Tartrate [Lopressor] 75 mg PO BID 09/16/16 [History] traMADol [Ultram] 100 mg PO DAILY@14 09/16/16 [History] Bisacodyl 5 mg PO DAILY PRN 01/21/17 [History] Ipratropium Solway 2 spray NASBOTH TID 01/21/17 [History] Polyethylene Glycol 3350 [MiraLAX] 17 gm PO DAILY 01/21/17 [History] Bisacodyl [Biscolax] 10 mg RECTAL DAILY PRN 08/27/17 [History] Calcium Carbonate [Tums] 1,000 mg PO QID PRN 08/27/17 [History] Cyanocobalamin (Vitamin B-12) [Cyanocobalamin Injection] 1,000 mcg IM Q30D 08/27 [History] Furosemide [Lasix] 60 mg PO BIDDIURETIC 08/27/17 [History] traMADol [Ultram] 50 mg PO BID@08,20 08/27/17 [History] Acetaminophen 650 mg PO Q4H PRN MDD 3 grams in 24 hours 01/18/18 [History] Cranberry 400 mg PO TID 01/18/18 [History] Melatonin 3 mg PO DAILY 01/18/18 [History] Carboxymethylcellulos/Glycerin [Refresh Optive Gel Eye Drops] 1 drop EYEBOTH QID 08/12/18 [History] Fluticasone Propionate [Flovent HFA 220 mcg] 1 puff PO BID 08/12/18 [History] Nystatin 1 applic TOP DAILY PRN 08/12/18 [History] Saliva Substitution Combo No.9 [Biotene] 1 spray PO TID PRN 08/12/18 [History] Simethicone [Gas Relief] 125 mg PO TID PRN 08/12/18 [History] traZODone HCl [Trazodone HCl] 12.5 mg PO DAILY 08/12/18 [History] Cetirizine HCl 5 mg PO DAILY PRN 02/10/19 [History] Gabapentin [Neurontin] 400 mg PO BID 02/10/19 [History] Gabapentin [Neurontin] 600 mg PO DAILY 02/10/19 [History] Sucralfate 1 gm PO TIDAC 02/10/19 [History] Trolamine Salicylate/Aloe Vera [Aspercreme 10% Cream] 1 applic TOP TID PRN 02/10 [History] guaiFENesin/Dextromethorphan [Tussin Dm Liquid] 10 ml PO Q4H PRN 02/10/19 [ History] Past Medical History HEENT History: Reports: Glaucoma Other HEENT History: refractive amblyopia. dry eye syndrome. presbyopia. dermatochalasis Cardiovascular History: Reports: CAD, High Cholesterol Other Cardiovascular History: edema Respiratory History: Reports: Asthma Gastrointestinal History: Reports: GERD, Irritable Bowel Syndrome Other Gastrointestinal History: dysphagia Musculoskeletal History: Reports: Osteoarthritis, Other (See Below) Other Musculoskeletal History: right back and hip pain Neurological History: Reports: Other (See Below) Other Neuro History: forgetful Psychiatric History: Reports: Depression Other Psychiatric History: mood disorder Endocrine/Metabolic History: Reports: Diabetes, Type II, Hypothyroidism Hematologic History: Reports: B12 Deficiency - Past Surgical History HEENT Surgical History: Reports: Cataract Surgery Social & Family History - Family History Family Medical History: Unobtainable - Tobacco Use Smoking Status *Q: Never Smoker - Caffeine Use Caffeine Use: Reports: Coffee - Recreational Drug Use Recreational Drug Use: No - Living Situation & Occupation Living situation: Reports: Assisted Living Occupation: Retired H&P Review of Systems - Review of Systems: Review Of Systems: See Below Exam - Exam Exam: See Below - Vital Signs Vital Signs: Last Vital Signs Temp 36.9 C 02/10/19 07:25 Pulse 85 02/10/19 10:40 Resp 24 H 02/10/19 10:40 BP 82/46 L 02/10/19 10:40 Pulse Ox 88 L 02/10/19 10:40 Weight: 66.224 kg - Patient Data Lab Results Last 24 hrs: Laboratory Results - last 24 hr 02/10/19 02/10/19 02/10/19 Range/Units 07:41 07:41 07:41 WBC 14.7 H (4.0-10.0) x10^3/uL RBC 4.13 (4.00-5.50) x10^6/uL Hgb 12.9 D (12.0-16.0) g/dL Hct 40.5 (33.0-47.0) % MCV 98.1 H (78.0-93.0) fL MCH 31.2 (26.0-32.0) pg MCHC 31.9 L (32.0-36.0) g/dL RDW Coeff of Rufino 16.5 H (10.0-15.0) % Plt Count 260 (130-400) x10^3/uL Add Manual Diff Yes Neutrophils % (Manual) 58 (50-80) % Band Neutrophils % 12 H (0-6) % Lymphocytes % (Manual) 10 L (25-50) % Monocytes % (Manual) 4 (2-11) % Eosinophils % (Manual) 1 (0-4) % Metamyelocytes % 10 H (0) % Myelocytes % 5 H (0) % POC ABG pH (7.35-7.45) POC ABG pCO2 (35-45) mmHG POC ABG pO2 (80-105) mmHG POC ABG HCO3 (22-26) mmol/L POC ABG Total CO2 (23-27) mmol/L POC ABG O2 Sat (95-98) % POC ABG Base Excess (-2-3) mmol/L POC FiO2 Sodium 144 (136-145) mmol/L Potassium 3.8 (3.5-5.1) mmol/L Chloride 105 (98-107) mmol/L Carbon Dioxide 23 (21-32) mmol/L Anion Gap 19.8 (10-20) mmol/L BUN 29 H (7-18) mg/dL Creatinine 2.4 H D (0.55-1.02) mg/dL Est Cr Clr Drug Dosing TNP Estimated GFR (MDRD) 19 Glucose 166 H (74-106) mg/dL Lactic Acid 8.5 H* (0.4-2.0) mmol/L Calcium 8.7 (8.5-10.1) mg/dL Corrected Calcium 10.06 (8.5-10.1) mg/dL Magnesium (1.8-2.4) mg/dL Total Bilirubin 1.4 H (0.2-1.0) mg/dL AST 70 H (15-37) U/L ALT 56 (14-59) U/L Alkaline Phosphatase 205 H (46-116) U/L Troponin I (<=0.056) ng/mL C-Reactive Protein 7.8 H (<=0.9) mg/dL NT-Pro-B Natriuret Pep (<=450) pg/mL Total Protein 5.8 L (6.4-8.2) g/dL Albumin 2.3 L (3.4-5.0) g/dL Globulin 3.5 Albumin/Globulin Ratio 0.66 POC Result Comm Urine Color (YELLOW) Urine Appearance (CLEAR) Urine pH (5.0-8.0) Ur Specific [place] Urine Protein (NEGATIVE) mg/dL Urine Glucose (UA) (NEGATIVE) mg/dL Urine Ketones (NEGATIVE) mg/dL Urine Occult Blood (NEGATIVE) Urine Nitrite (NEGATIVE) Urine Bilirubin (NEGATIVE) Urine Urobilinogen (0.2) EU/dL Ur Leukocyte Esterase (NEGATIVE) Urine RBC (NOT SEEN) /HPF Urine WBC (NOT SEEN) /HPF Ur Squamous Epith Cells (NEGATIVE) /HPF Amorphous Sediment Urine Bacteria (NEGATIVE) /HPF Hyaline Casts (NEGATIVE) /HPF Granular Casts (NEGATIVE) /HPF Urine Mucus (NEGATIVE) /LPF 02/10/19 02/10/19 02/10/19 Range/Units 07:41 07:41 07:54 WBC (4.0-10.0) x10^3/uL RBC (4.00-5.50) x10^6/uL Hgb (12.0-16.0) g/dL Hct (33.0-47.0) % MCV (78.0-93.0) fL MCH (26.0-32.0) pg MCHC (32.0-36.0) g/dL RDW Coeff of Rufino (10.0-15.0) % Plt Count (130-400) x10^3/uL Add Manual Diff Neutrophils % (Manual) (50-80) % Band Neutrophils % (0-6) % Lymphocytes % (Manual) (25-50) % Monocytes % (Manual) (2-11) % Eosinophils % (Manual) (0-4) % Metamyelocytes % (0) % Myelocytes % (0) % POC ABG pH 7.323 L (7.35-7.45) POC ABG pCO2 40 (35-45) mmHG POC ABG pO2 35 L* (80-105) mmHG POC ABG HCO3 21 L (22-26) mmol/L POC ABG Total CO2 22 L (23-27) mmol/L POC ABG O2 Sat 62 L (95-98) % POC ABG Base Excess -5 L (-2-3) mmol/L POC FiO2 0.21 Sodium (136-145) mmol/L Potassium (3.5-5.1) mmol/L Chloride (98-107) mmol/L Carbon Dioxide (21-32) mmol/L Anion Gap (10-20) mmol/L BUN (7-18) mg/dL Creatinine (0.55-1.02) mg/dL Est Cr Clr Drug Dosing Estimated GFR (MDRD) Glucose (74-106) mg/dL Lactic Acid (0.4-2.0) mmol/L Calcium (8.5-10.1) mg/dL Corrected Calcium (8.5-10.1) mg/dL Magnesium 1.9 (1.8-2.4) mg/dL Total Bilirubin (0.2-1.0) mg/dL AST (15-37) U/L ALT (14-59) U/L Alkaline Phosphatase (46-116) U/L Troponin I < 0.017 (<=0.056) ng/mL C-Reactive Protein (<=0.9) mg/dL NT-Pro-B Natriuret Pep 2000 H (<=450) pg/mL Total Protein (6.4-8.2) g/dL Albumin (3.4-5.0) g/dL Globulin Albumin/Globulin Ratio POC Result Comm Called critical res Urine Color (YELLOW) Urine Appearance (CLEAR) Urine pH (5.0-8.0) Ur Specific Early Branch Urine Protein (NEGATIVE) mg/dL Urine Glucose (UA) (NEGATIVE) mg/dL Urine Ketones (NEGATIVE) mg/dL Urine Occult Blood (NEGATIVE) Urine Nitrite (NEGATIVE) Urine Bilirubin (NEGATIVE) Urine Urobilinogen (0.2) EU/dL Ur Leukocyte Esterase (NEGATIVE) Urine RBC (NOT SEEN) /HPF Urine WBC (NOT SEEN) /HPF Ur Squamous Epith Cells (NEGATIVE) /HPF Amorphous Sediment Urine Bacteria (NEGATIVE) /HPF Hyaline Casts (NEGATIVE) /HPF Granular Casts (NEGATIVE) /HPF Urine Mucus (NEGATIVE) /LPF 02/10/19 Range/Units 08:35 WBC (4.0-10.0) x10^3/uL RBC (4.00-5.50) x10^6/uL Hgb (12.0-16.0) g/dL Hct (33.0-47.0) % MCV (78.0-93.0) fL MCH (26.0-32.0) pg MCHC (32.0-36.0) g/dL RDW Coeff of Rufino (10.0-15.0) % Plt Count (130-400) x10^3/uL Add Manual Diff Neutrophils % (Manual) (50-80) % Band Neutrophils % (0-6) % Lymphocytes % (Manual) (25-50) % Monocytes % (Manual) (2-11) % Eosinophils % (Manual) (0-4) % Metamyelocytes % (0) % Myelocytes % (0) % POC ABG pH (7.35-7.45) POC ABG pCO2 (35-45) mmHG POC ABG pO2 (80-105) mmHG POC ABG HCO3 (22-26) mmol/L POC ABG Total CO2 (23-27) mmol/L POC ABG O2 Sat (95-98) % POC ABG Base Excess (-2-3) mmol/L POC FiO2 Sodium (136-145) mmol/L Potassium (3.5-5.1) mmol/L Chloride (98-107) mmol/L Carbon Dioxide (21-32) mmol/L Anion Gap (10-20) mmol/L BUN (7-18) mg/dL Creatinine (0.55-1.02) mg/dL Est Cr Clr Drug Dosing Estimated GFR (MDRD) Glucose (74-106) mg/dL Lactic Acid (0.4-2.0) mmol/L Calcium (8.5-10.1) mg/dL Corrected Calcium (8.5-10.1) mg/dL Magnesium (1.8-2.4) mg/dL Total Bilirubin (0.2-1.0) mg/dL AST (15-37) U/L ALT (14-59) U/L Alkaline Phosphatase (46-116) U/L Troponin I (<=0.056) ng/mL C-Reactive Protein (<=0.9) mg/dL NT-Pro-B Natriuret Pep (<=450) pg/mL Total Protein (6.4-8.2) g/dL Albumin (3.4-5.0) g/dL Globulin Albumin/Globulin Ratio POC Result Comm Urine Color Dark yellow H (YELLOW) Urine Appearance Slightly cloudy H (CLEAR) Urine pH 6.5 (5.0-8.0) Ur Specific [place] 1.015 Urine Protein Trace H (NEGATIVE) mg/dL Urine Glucose (UA) Negative (NEGATIVE) mg/dL Urine Ketones Negative (NEGATIVE) mg/dL Urine Occult Blood Negative (NEGATIVE) Urine Nitrite Negative (NEGATIVE) Urine Bilirubin Negative (NEGATIVE) Urine Urobilinogen 0.2 (0.2) EU/dL Ur Leukocyte Esterase Negative (NEGATIVE) Urine RBC 0-5 (NOT SEEN) /HPF Urine WBC 0-5 (NOT SEEN) /HPF Ur Squamous Epith Cells Few H (NEGATIVE) /HPF Amorphous Sediment Few Urine Bacteria Few H (NEGATIVE) /HPF Hyaline Casts Few H (NEGATIVE) /HPF Granular Casts Few H (NEGATIVE) /HPF Urine Mucus Few H (NEGATIVE) /LPF Result Diagrams: 02/10/19 07:41 02/10/19 07:41 Enrrique Results Last 24 hrs: Microbiology 02/10/19 07:58 Anaerobic Blood Culture - Final Blood - Venous - Lab Draw 02/10/19 07:32 Anaerobic Blood Culture - Final Blood - Venous Problem List Initiated/Reviewed/Updated: Yes Orders Last 24hrs: Active Orders 24 hr Category Date Time Status Admission Status [Patient Status] [ADT] Routine ADT 02/10/19 11:03 Active Accu Check [Blood Glucose Check, Bedside] [RC] Care 02/10/19 12:03 Active QIDACANDBED BIPAP Adult [RT BiPAP/CPAP] [RC] 08,20 Care 02/10/19 08:03 Active Aranda Catheter Insertion [Insert Urinary Catheter] [OM. Care 02/10/19 08:30 Ordered PC] Q24H Oxygen Therapy Adult [Oxygen Therapy] [RC] 06,10,14,18, Care 02/10/19 09:20 Active 22,02 Urinary Catheter Assessment [RC] 08,20 Care 02/10/19 10:31 Active Mechanical Soft Diet [DIET] Diet 02/10/19 Dinner Active CULTURE BLOOD [BC] Stat Lab 02/10/19 07:32 Results CULTURE BLOOD [BC] Stat Lab 02/10/19 07:58 Results CULTURE MRSA SURVEY [RM] Routine Lab 02/10/19 11:45 Received Lactated Ringers [Ringers, Lactated] 1,000 ml Med 02/10/19 11:15 Active IV ASDIRECTED Blood Culture x2 Reflex Set [OM.PC] Stat Oth 02/10/19 07:31 Ordered Code Status [Resuscitation Status] Routine Resus Stat 02/10/19 12:01 Ordered Medication Orders Lactated Ringer's (Ringers, Lactated) 1,000 mls @ 125 mls/hr IV ASDIRECTED VAIBHAV Last Admin: 02/10/19 11:53 Dose: 125 mls/hr Infusion: 02/10/19 11:53 Dose: 125 mls/hr Admin: 02/10/19 11:20 Dose: 125 mls/hr
[2019-02-10] MEDS ORDERED: traMADol 50 MG Tab PO SCH (14:00)
[2019-02-10] MEDS ORDERED: Ondansetron 4 MG/2 ML SDV IV PRN (14:03)
[2019-02-10] MEDS ORDERED: HYDROmorphone 1 MG/ML Syringe IVPUSH PRN (14:03)
[2019-02-10] MEDS ORDERED: Miconazole 2% Top Powder 45 GM Container TOP PRN (14:10)
[2019-02-10] MEDS ORDERED: guaiFENesin/Dextromethorphan 100-10 MG/5 ML Soln 10 ML Cup PO PRN (14:10)
[2019-02-10] MEDS ORDERED: Simethicone 80 MG Tab.Chew PO PRN (14:10)
[2019-02-10] MEDS ORDERED: Menthol/Methyl Salicylate 85 GM Tube TOP PRN (14:10)
[2019-02-10] MEDS ORDERED: Nitroglycerin 0.4 MG Tab.SL SL PRN (14:10)
[2019-02-10] MEDS ORDERED: Bisacodyl 5 MG Tab PO PRN (14:10)
[2019-02-10] MEDS ORDERED: Bisacodyl 10 MG Supp RECTAL PRN (14:10)
[2019-02-10] MEDS ORDERED: Acetaminophen 325 MG Tab PO PRN (14:10)
[2019-02-10] MEDS ORDERED: SALIVA SUBSTITUTION COMBO NO 9 PO PRN (14:10)
[2019-02-10] MEDS ORDERED: Potassium Chloride 10 MEQ Tab.ER PO SCH (14:45)
[2019-02-10 14:53] LABS: ANION GAP 18.5 mmol/L (10-20)
[2019-02-10] MEDS: Gabapentin 400 MG Cap PO SCH (16:53)
[2019-02-10] MEDS: Dextran 70/Hypromellose/PF Ophth Soln 0.9 ML UD EYEBOTH SCH ×2 (16:54→20:57)
[2019-02-10] MEDS: methylPREDNISolone Sodium Succinate 40 MG/1 ML SDV IVPUSH SCH (17:40)
[2019-02-10] MEDS: Potassium Chloride 10% 20 MEQ/15 ML Soln 15 ML UD Cup PO SCH ×2 (17:49→20:58)
[2019-02-10] MEDS ORDERED: Potassium Chloride 10% 20 MEQ/15 ML Soln 15 ML UD Cup PO SCH (18:00)
[2019-02-10] MEDS: Metoprolol Tartrate 25 MG Tab PO SCH (20:56)
[2019-02-10] MEDS: Venlafaxine 37.5 MG Tab PO SCH (20:57)
[2019-02-10] MEDS: traMADol 50 MG Tab PO SCH (20:57)
[2019-02-10] MEDS: Gabapentin 300 MG Cap PO SCH (20:57)
[2019-02-10] MEDS: LORazepam 0.5 MG Tab PO SCH (21:00)
[2019-02-10] MEDS: Melatonin 3 MG Tab PO SCH (21:03)
[2019-02-10] MEDS: traZODone 50 MG Tab PO SCH (21:03)
[2019-02-10] MEDS: Latanoprost 0.005% Ophth Soln 2.5 ML Bottle EYELF SCH (21:04)
[2019-02-10] MEDS: Albuterol/Ipratropium 3.0-0.5 MG/3 ML Neb Soln NEB PRN (23:42)
[2019-02-11] MEDS: HYDROmorphone 1 MG/ML Syringe IVPUSH PRN ×5 (00:35→22:04)
[2019-02-11] MEDS: Venlafaxine 37.5 MG Tab PO SCH ×3 (00:39→19:37)
[2019-02-11] MEDS: Gabapentin 300 MG Cap PO SCH ×2 (00:41→19:37)
[2019-02-11] MEDS: LORazepam 0.5 MG Tab PO SCH ×2 (00:41→19:37)
[2019-02-11] MEDS: Melatonin 3 MG Tab PO SCH ×2 (00:41→19:37)
[2019-02-11] MEDS: traZODone 50 MG Tab PO SCH ×2 (00:42→19:38)
[2019-02-11] MEDS: Potassium Chloride 10% 20 MEQ/15 ML Soln 15 ML UD Cup PO SCH (00:42)
[2019-02-11] MEDS: methylPREDNISolone Sodium Succinate 40 MG/1 ML SDV IVPUSH SCH (05:23)
[2019-02-11] MEDS: Lactated Ringers 1,000 ML IV SCH ×3 (05:25→23:01)
[2019-02-11] MEDS: Albuterol/Ipratropium 3.0-0.5 MG/3 ML Neb Soln NEB PRN (06:28)
[2019-02-11] MEDS ORDERED: Omeprazole 20 MG Cap.CR PO SCH (07:00)
[2019-02-11 07:10] LABS: ANION GAP 12.1 mmol/L (10-20)
[2019-02-11] MEDS: cefTRIAXone 1 GM Vial IVPUSH SCH (07:48)
[2019-02-11] MEDS: Azithromycin 500 MG in Sodium Chloride 0.9% 250 ML IV SCH (07:49)
[2019-02-11] MEDS: Aspirin 81 MG Tab.Chew PO SCH (07:49)
[2019-02-11] MEDS: Levothyroxine 75 MCG Tab PO SCH (07:50)
[2019-02-11] MEDS: Gabapentin 400 MG Cap PO SCH ×2 (07:51→15:13)
[2019-02-11] MEDS: Metoprolol Tartrate 25 MG Tab PO SCH (07:51)
[2019-02-11] MEDS: traMADol 50 MG Tab PO SCH (07:51)
[2019-02-11] MEDS ORDERED: Diltiazem 240 MG Cap.ER PO SCH (08:00)
[2019-02-11] MEDS ORDERED: traMADol 50 MG Tab PO PRN ×2 (08:19)
[2019-02-11] MEDS: Metoprolol Tartrate 5 MG/5 ML SDV IVPUSH SCH ×2 (09:11→16:49)
[2019-02-11] MEDS: Pantoprazole 40 MG Vial IVPUSH SCH (09:11)
[2019-02-11] MEDS: Dextran 70/Hypromellose/PF Ophth Soln 0.9 ML UD EYEBOTH SCH ×4 (09:20→19:37)
--- NOTE | 2019-02-11 13:08 | PN ---
Progress Note for TONEY OLMOS Date: 02/11/2019 Room #: VM.203 SUBJECTIVE: This is hospital day #2 on an 83-year-old admitted with hypoxic respiratory failure secondary to bilateral pneumonia after an episode of vomiting, presumed pneumonia is due to aspiration due to allergy. She is on day #2 of Rocephin and Zithromax. White count did come up this morning, but she has been afebrile. Her lactic has improved from 8.5 down to 3.2. She is continuing to require the BiPAP, 100% FiO2 to maintain sats above 90%. She worsens with removing the BiPAP and was only able to drink some liquids. She is most concerned today about pain in her chest with breathing. She has also some trouble swallowing, so has refused her pills. CT done yesterday did confirm the pneumonia as her x-ray looked more like heart failure. Her proBNP was 2000. Her troponin negative and her creatinine improved from 2.4 to 1.4. She had been seen on the day previous for more stomach issues with heartburn. She is already on Prilosec and had been started on Carafate. Hemoglobin did drop from 12.9 to 11, but that was considered to be due to hemodilution. She has had no bowel movements. UA was negative for infection. She does have a Aranda in place. Her son is at the bedside. OBJECTIVE: Vital Signs: Her temperature 97.5; pulse 96; blood pressure 142/66, that has come up, she was hypotensive; respiratory rate still at 32; O2 of 94% on the 100% FiO2. It should be noted she required 2 doses of Dilaudid during the night for respiratory distress and tachypnea. The 0.5 mg dose was successful. General: She is in no acute distress, resting there on the BiPAP and sleeping, but awoken easily. Heart: Regular rate and rhythm. Lungs: Lung sounds actually fairly clear to auscultation. No appreciated wheezes, but decreased throughout. Abdomen: Nondistended. Positive bowel sounds. Nontender. She had more distention yesterday, but CT was not showing any bowel obstruction. Extremities: Warm and dry. No edema. Mental Status: She is alert. She is answering questions appropriately. LABORATORY DATA: Again, white count went up to 22,200, hemoglobin 11.0, platelets 223. Sodium 142, potassium 4.1, chloride 105, bicarb 29, BUN 1.4, glucose 203. Lactic down to 3.2, bilirubin down to 0.5, AST 40, ALT 40, alkaline phosphatase 173, albumin 2.1. ASSESSMENT AND PLAN: 1. Severe sepsis due to bilateral aspiration. 2. Acute hypoxic respiratory failure due to aspiration, requiring BiPAP. 3. Chemical pneumonitis, possible aspiration pneumonia. 4. Diabetes with mild hyperglycemia, probably due to steroids, not requiring significant insulin. 5. Parkinson's and difficulty swallowing. The patient had been following her thickened liquid [facility]. 6. Moderate malnutrition. 7. Chronic pain. The patient is on Neurontin. We will try to get her doses in today. We will change her tramadol to p.r.n. Her pain is due to osteoarthritis and a history of fibromyalgia. 8. Hypothyroidism. We will continue her thyroid medication. 9. History of coronary artery disease. Troponin has been negative. She had symptoms for at least 3 hours prior to the first troponin being drawn. No repeat troponin was done. If she has new chest pain, we will order it. 10.Acute renal failure secondary to sepsis. The patient's creatinine is improving. We will repeat tomorrow. I am also going to hold her potassium supplements. PLAN: At this point, the patient was started on IV metoprolol due to difficulty with swallowing. We would want to prevent her from going into rapid heart rates. We will continue the IV Rocephin and Zithromax. We will repeat lab work tomorrow. We will also repeat her chest x-ray tomorrow. We will continue the BiPAP and wean the oxygen as able. I do not think an ABG is indicated as we would not be intubating her and we would give her another 24 hours on the BiPAP to see if she improves. Did discuss with the son that her condition is still overall guarded. The patient also asked if she could from this, so we had taz conversations about that. We will decrease her IV fluids. We will also change her Prilosec over to IV. She is on Lovenox for deep vein thrombosis prophylaxis. We will decrease her Solu-Medrol to once daily. If blood sugars remain over 250, I will start some insulin. MKA: 02/11/2019 12:34:45 MODL: 02/11/2019 12:59:53 /[id number]
[2019-02-11] MEDS: LORazepam 2 MG/ML SDV IVPUSH PRN (19:17)
[2019-02-11] MEDS: Latanoprost 0.005% Ophth Soln 2.5 ML Bottle EYELF SCH (19:38)
[2019-02-11] MEDS ORDERED: Enoxaparin 30 MG/0.3 ML Syringe SUBCUT SCH (20:00)
[2019-02-12] MEDS: Metoprolol Tartrate 5 MG/5 ML SDV IVPUSH SCH ×3 (00:37→16:57)
[2019-02-12] MEDS: LORazepam 2 MG/ML SDV IVPUSH PRN ×5 (01:15→21:17)
[2019-02-12] MEDS: HYDROmorphone 1 MG/ML Syringe IVPUSH PRN ×6 (02:30→17:44)
[2019-02-12] MEDS ORDERED: Furosemide 20 MG/2 ML VIAL IV ONE (03:35)
--- NOTE | 2019-02-12 03:38 | PCM.SN ---
- Free Text/Narrative Note: Contacted by nursing due to lower oxygen saturations overnight. Patient has been saturating in the low 90's while sleeping with the BiPap on and is now down into the low 80's tonight. Remains restless while awake but is comfortable while sleeping otherwise and does not appear in any distress. Nursing assessment is that she is fluid overloaded based on diffuse scattered rales and significantly positive fluid balance in the past 2 days with her lasix being held. Requesting to hold fluids and do a dose of IV lasix. This is reasonable. Orders entered. Patient is already on BiPap with 100% FiO2 and is a DNI/do not transfer. Her condition has been guarded since admission and remains so. Will see how she does with the above interventions and then go from there.
[2019-02-12] MEDS: Albuterol/Ipratropium 3.0-0.5 MG/3 ML Neb Soln NEB PRN (07:09)
[2019-02-12 07:17] LABS: ANION GAP 14.5 mmol/L (10-20)
[2019-02-12] MEDS: cefTRIAXone 1 GM Vial IVPUSH SCH (07:43)
[2019-02-12] MEDS: Pantoprazole 40 MG Vial IVPUSH SCH (07:43)
[2019-02-12] MEDS: Venlafaxine 37.5 MG Tab PO SCH (07:44)
[2019-02-12] MEDS: Aspirin 81 MG Tab.Chew PO SCH (07:44)
[2019-02-12] MEDS: Levothyroxine 75 MCG Tab PO SCH (07:44)
[2019-02-12] MEDS: Gabapentin 400 MG Cap PO SCH ×2 (07:45→13:15)
[2019-02-12] MEDS: Dextran 70/Hypromellose/PF Ophth Soln 0.9 ML UD EYEBOTH SCH ×3 (07:45→16:17)
[2019-02-12] MEDS: Azithromycin 500 MG in Sodium Chloride 0.9% 250 ML IV SCH (07:58)
[2019-02-12] MEDS ORDERED: methylPREDNISolone Sodium Succinate 40 MG/1 ML SDV IVPUSH SCH (08:00)
[2019-02-12] MEDS ORDERED: Furosemide 40 MG/4 ML VIAL IV ONE ×2 (08:11→11:32)
--- NOTE | 2019-02-12 08:13 | CR ---
[id number] RAD/RAD Chest PA or AP 1V EXAM: RAD Chest PA or AP 1V INDICATION: HYPOXIA. COMPARISON: February 10, 2019. DISCUSSION: Extensive parenchymal opacification throughout both lungs with air bronchograms, correlating with findings on CT from February 10. Findings have progressed since the prior examination. Appearance on CT is more consistent with pneumonia than edema. However, in the setting of cardiomegaly and central vascular congestion, CHF exacerbation is also possible. Correlate for signs of infection. IMPRESSION: Progression of bilateral symmetric parenchymal opacities since the prior examination, described in detail above. Aden Hines MD 02/12/19 0812 Thank you for allowing us to participate in the care of your patient.
--- NOTE | 2019-02-12 09:16 | PN ---
Progress Note for TONEY OLMOS Date: 02/12/2019 Room #: .203 SUBJECTIVE: Hospital day #3 on an 83-year-old admitted with multiorgan failure with hypoxic respiratory failure to aspiration. The patient has been afebrile, but had increasing respiratory distress during the night with tachypnea up to the 60s and O2 sats in the lows 80s. She did respond well to the IV Dilaudid as far as tachypnea goes, but now she is not responsive to verbal commands when yesterday she was more up and alert, answering questions appropriately. She otherwise has not had anything to eat or drink. She has been on IV fluids, but those were discontinued during the night due to increasing respiratory distress and she did receive 20 mg of IV Lasix. She had a positive fluid balance of 1.6 L initially, she did have 1500 now out overnight. Chest x-ray repeated this morning did show some worsening. She did get 2 doses of 0.5 Dilaudid overnight, she got at least 3 doses yesterday. OBJECTIVE: Vital Signs: Her temperature is 97.6, her pulse is 120, her blood pressure is 159/73, her respiratory rate is 30, and O2 is 84% on 100% FiO2 with BiPAP. General: She is in no acute distress. Heart: Regular rate and rhythm with tachycardia. Lungs: Lungs sounds show decreased throughout with rhonchi. No wheezing appreciated. Abdomen: Has positive bowel sounds. Soft, nontender. Extremities: Warm and dry. No edema. Mental Status: She is unresponsive. LABORATORY DATA: Laboratory work reviewed, did show white count 22.7, hemoglobin 12.9, platelets 238. Sodium 144, potassium 4.5, chloride 106, bicarb 28, BUN 27, creatinine 1, glucose 167, calcium 9.1. ASSESSMENT: 1. Acute hypoxic respiratory failure secondary to an episode of aspiration likely chemical pneumonitis versus pneumonia. The patient on day #3 of Rocephin and Zithromax selected due to her allergies. 2. Severe sepsis due to the aspiration pneumonia. 3. Acute renal failure, resolved. 4. Diabetes with mild hyperglycemia due to steroids, improving, not requiring insulin. 5. Parkinson disease with difficulty swallowing. She has had previous episodes of aspiration pneumonia, but this is by far the worst. 6. Moderate malnutrition. 7. Chronic pain. 8. Hypothyroidism. 9. History of coronary artery disease. We are giving her metoprolol IV since she is unable to take oral medications. PLAN: At this point, the patient will continue acute cares. I called her sons, tried to give them an update about worsening respiratory status. Chest x-ray repeated today did show worsening infiltrates. We will go ahead and give her another dose of IV Lasix 40 mg in case some fluid is contributing; however, I am concerned that this would be possibly developing ARDS. The patient is not wanting to be intubated or have CPR in the past. We will continue supportive cares with BiPAP. We will continue to use the Dilaudid for agitation and tachypnea with a BiPAP. Overall, her condition is very guarded. She may need to transition over to comfort cares. She is on Lovenox for DVT prophylaxis and I am going to discontinue her IV steroids. I do not believe they are providing any benefit. We will repeat lab work tomorrow. MKA: 02/12/2019 08:33:56 MODL: 02/12/2019 09:08:26 /[id number] CLAY
[2019-02-12 16:58] VITALS: BP 97/51
[2019-02-12] MEDS ORDERED: Morphine 2 MG/ML Syringe IVPUSH ONE (19:57)
[2019-02-12] MEDS ORDERED: Morphine 2 MG/ML Syringe IVPUSH PRN (19:59)
--- NOTE | 2019-02-12 20:01 | PCM.SN ---
- Free Text/Narrative Note: Patients son (POA) and family have requested comfort measures/palliative services. They have discussed this option in detail earlier in the day with Dr. Barragan. They would like to remove the bipap after all of the family are present later this evening. We will change the code level status as of now. The bipap will remain on for comfort measures only. If while family is not present the patient was to have the unlikely event of a respiratory or cardiac arrest they do not wish for us to proceed with any life saving measures. When family is all present later this evening we will remove the BiPAP. They have requested as of now to stop all medication administrations other than those to help with keeping her comfortable. All medications and orders have been discontinued. Ativan will remain active to help with any agitation also prior to the removal of bipap, the patient will be given morphine to help with comfort and transition as the BiPAP comes off. Orders will be provided to keep the patient comfortable. Family is aware and agreeable to the plan. Clergy has been present at the bedside. Nursing personnel updated. All questions and concerns were addressed prior to leaving the floor.
[2019-02-12] MEDS ORDERED: LORazepam 2 MG/ML SDV IVPUSH ONE (21:34)
--- NOTE | 2019-02-13 08:26 | PCM.DCSUM1 ---
Discharge Summary - Hospital Course Brief History: Patient was admitted to the hospital for diagnosis of pneumonia with respiratory compromise. Patient's condition after admission conitunied to decline and BiPAP was needed. Family and PCP discussed options and was agreeable to comfort cares. After all of the family presented back to the hospital 02/12. BiPAP was removed. Ativan and morphine was provided for comfort measures. Patient at 2215pm surrounded with family at the bedside. Diagnosis: Stroke: No - Discharge Data Discharge Date: 02/12/19 Discharge Disposition: 20 Condition: - Discharge Diagnosis/Problem(s) (1) Respiratory failure SNOMED Code(s): 916327692 ICD Code: J96.90 - RESPIRATORY FAILURE, UNSP, UNSP W HYPOXIA OR HYPERCAPNIA Status: Acute (2) End of life care SNOMED Code(s): 408788220, 088460422 ICD Code: Z51.5 - ENCOUNTER FOR PALLIATIVE CARE Status: Acute (3) Pneumonia SNOMED Code(s): 657943302 ICD Code: J18.9 - PNEUMONIA, UNSPECIFIED ORGANISM Status: Acute Qualifiers: Pneumonia type: due to unspecified organism Laterality: bilateral Lung location: upper lobe of lung Qualified Code(s): J18.1 - Lobar pneumonia, unspecified organism - Discharge Plan *PRESCRIPTION DRUG MONITORING PROGRAM REVIEWED*: Not Applicable *COPY OF PRESCRIPTION DRUG MONITORING REPORT IN PATIENT BONNIE: Not Applicable Home Medications: Home Meds Aspirin [Halfprin] 81 mg PO DAILY 06/21/15 [History] LORazepam [Ativan] 0.25 mg PO 2000 06/21/15 [History] Latanoprost [Xalatan 0.005% [facility] Soln] 1 drop EYELF BEDTIME 06/21/15 [History] Levothyroxine 75 mcg PO DAILY 06/21/15 [History] Omeprazole [Prilosec] 20 mg PO ACBREAKFAST 06/21/15 [History] Potassium Chloride 30 meq PO 12,17,20 06/21/15 [History] Venlafaxine [Effexor] 75 mg PO BID 10/30/15 [History] dilTIAZem HCl [Diltiazem 24Hr ER (Cd)] 240 mg PO 08 10/30/15 [History] Nitroglycerin [Nitrostat] 0.4 mg SL Q5M PRN 11/03/15 [History] Metoprolol Tartrate [Lopressor] 75 mg PO BID 09/16/16 [History] traMADol [Ultram] 100 mg PO DAILY@14 09/16/16 [History] Bisacodyl 5 mg PO DAILY PRN 01/21/17 [History] Ipratropium [place] 2 spray NASBOTH 08,14,20 01/21/17 [History] Polyethylene Glycol 3350 [MiraLAX] 17 gm PO DAILY 01/21/17 [History] Bisacodyl [Biscolax] 10 mg RECTAL DAILY PRN 08/27/17 [History] Calcium Carbonate [Tums] 1,000 mg PO QID PRN 08/27/17 [History] Cyanocobalamin (Vitamin B-12) [Cyanocobalamin Injection] 1,000 mcg IM Q30D 08/27 [History] Furosemide [Lasix] 60 mg PO 08,14 08/27/17 [History] traMADol [Ultram] 50 mg PO BID@,08/27/17 [History] Acetaminophen 650 mg PO Q4H PRN MDD 3 grams in 24 hours 01/18/18 [History] Cranberry 400 mg PO ,14,01/18/18 [History] Melatonin 3 mg PO DAILY 01/18/18 [History] Carboxymethylcellulos/Glycerin [Refresh Optive Gel Eye Drops] 1 drop EYEBOTH 08, 12,16,20 08/12/18 [History] Fluticasone Propionate [Flovent HFA 220 mcg] 1 puff PO BID 08/12/18 [History] Nystatin 1 applic TOP DAILY PRN 08/12/18 [History] Saliva Substitution Combo No.9 [Biotene] 1 spray PO TID PRN 08/12/18 [History] Simethicone [Gas Relief] 125 mg PO TID PRN 08/12/18 [History] traZODone HCl [Trazodone HCl] 12.5 mg PO DAILY 08/12/18 [History] Cetirizine HCl 5 mg PO DAILY PRN 02/10/19 [History] Gabapentin [Neurontin] 400 mg PO 08,14 02/10/19 [History] Gabapentin [Neurontin] 600 mg PO 199902/10/19 [History] Sucralfate 1 gm PO ,,17 02/10/19 [History] Trolamine Salicylate/Aloe Vera [Aspercreme 10% Cream] 1 applic TOP TID PRN 02/10 [History] guaiFENesin/Dextromethorphan [Tussin Dm Liquid] 10 ml PO Q4H PRN 02/10/19 [ History] - Discharge Summary/Plan Comment DC Time >30 min.: No - General Info Date of Service: 02/12/19 Admission Dx/Problem (Free Text: Admission Diagnosis/Problem Admission Diagnosis/Problem Pneumonia - Patient Data Vitals - Most Recent: Last Vital Signs Temp 36.2 C 02/12/19 16:58 Pulse 90 02/12/19 16:58 Resp 34 H 02/12/19 16:58 BP 97/51 L 02/12/19 16:58 Pulse Ox 87 L 02/12/19 16:58 Weight - Most Recent: 66.224 kg I&O - Last 24 hours: Intake & Output 02/12/19 02/13/19 02/13/19 22:59 06:59 14:59 Intake Total 0 Output Total 700 Balance -700 Lab Results - Last 24 hrs: Laboratory Results - last 24 hr 02/12/19 02/12/19 02/12/19 Range/Units 05:10 06:50 06:50 POC Glucose 150 H (74-106) mg/dL Troponin I 0.266 H* (<=0.056) ng/mL NT-Pro-B Natriuret Pep 05305 H (<=450) pg/mL 02/12/19 Range/Units 11:19 POC Glucose 184 H (74-106) mg/dL Troponin I (<=0.056) ng/mL NT-Pro-B Natriuret Pep (<=450) pg/mL Med Orders - Current: Current Medications Discontinued Medications Acetaminophen (Tylenol) 650 mg PO Q4H PRN PRN Reason: Pain Albuterol/Ipratropium (Duoneb 3.0-0.5 Mg/3 Ml) 3 ml NEB Q4H PRN PRN Reason: dyspnea/wheezing Last Admin: 02/12/19 07:09 Dose: 3 ml Artificial Tears (Tears Naturale Free) 1 each EYEBOTH QID VAIBHAV Last Admin: 02/12/19 16:17 Dose: Not Given Aspirin (Aspirin) 81 mg PO DAILY [facility] Last Admin: 02/12/19 07:44 Dose: Not Given Bisacodyl (Dulcolax) 5 mg PO DAILY PRN PRN Reason: Constipation Bisacodyl (Dulcolax) 10 mg RECTAL DAILY PRN PRN Reason: Constipation Ceftriaxone Sodium (Rocephin) 1 gm IVPUSH STAT ONE Stop: 02/10/19 11:02 Last Admin: 02/10/19 11:15 Dose: 1 gm Ceftriaxone Sodium (Rocephin) 1 gm IVPUSH DAILY [facility] Last Admin: 02/12/19 07:43 Dose: 1 gm Diltiazem HCl (Dilacor Xr) 240 mg PO DAILY [facility] Last Admin: 02/11/19 07:49 Dose: Not Given Enoxaparin Sodium (Lovenox) 30 mg SUBCUT BEDTIME [facility] Last Admin: 02/11/19 20:27 Dose: 30 mg Furosemide (Lasix) 20 mg IV ONETIME ONE Stop: 02/12/19 03:36 Last Admin: 02/12/19 03:45 Dose: 20 mg Furosemide (Lasix) 40 mg IV ONETIME ONE Stop: 02/12/19 08:12 Last Admin: 02/12/19 08:33 Dose: 40 mg Furosemide (Lasix) 40 mg IV ONETIME ONE Stop: 02/12/19 11:33 Last Admin: 02/12/19 12:01 Dose: 40 mg Gabapentin (Neurontin) 600 mg PO BEDTIME [facility] Last Admin: 02/11/19 19:37 Dose: Not Given Gabapentin (Neurontin) 400 mg PO BID@0800,1400 [facility] Last Admin: 02/12/19 13:15 Dose: Not Given Guaifenesin/Dextromethorphan (Robitussin Dm) 10 ml PO Q4H PRN PRN Reason: Cough Hydromorphone HCl (Dilaudid) 0.25 mg IVPUSH Q2H PRN PRN Reason: Pain (severe 7-10) Last Admin: 02/10/19 23:42 Dose: 0.25 mg Hydromorphone HCl (Dilaudid) 0.5 mg IVPUSH Q2H PRN PRN Reason: Pain (severe 7-10) Last Admin: 02/12/19 17:44 Dose: 0.5 mg Azithromycin 500 mg/ Sodium (Chloride) 250 mls @ 250 mls/hr IV STAT ONE Stop: 02/10/19 12:00 Last Admin: 02/10/19 11:52 Dose: 250 mls/hr Lactated Ringer's (Ringers, Lactated) 1,000 mls @ 100 mls/hr IV ASDIRECTED [facility] Last Admin: 02/11/19 23:01 Dose: 100 mls/hr Sodium Chloride (Normal Saline) 500 mls @ 500 mls/hr IV ONETIME ONE Stop: 02/10/19 12:14 Last Admin: 02/10/19 07:25 Dose: 500 mls/hr Azithromycin 500 mg/ Sodium (Chloride) 250 mls @ 250 mls/hr IV DAILY [facility] Last Admin: 02/12/19 07:58 Dose: 250 mls/hr Latanoprost (Xalatan 0.005% Ophth Soln) 0 ml EYELF BEDTIME [facility] Last Admin: 02/11/19 19:38 Dose: Not Given Levothyroxine Sodium (Levothyroxine) 75 mcg PO DAILY [facility] Last Admin: 02/12/19 07:44 Dose: Not Given Lorazepam (Ativan) 0.25 mg PO BEDTIME [facility] Last Admin: 02/11/19 19:37 Dose: Not Given Lorazepam (Ativan) 0.5 mg IVPUSH Q4H PRN PRN Reason: Anxiety Last Admin: 02/12/19 21:17 Dose: 0.5 mg Lorazepam (Ativan) 1 mg IVPUSH STAT ONE Stop: 02/12/19 21:35 Last Admin: 02/12/19 21:37 Dose: 1 mg Melatonin (Melatonin) 3 mg PO BEDTIME [facility] Last Admin: 02/11/19 19:37 Dose: Not Given Methyl Salicylate (Icy Hot Cream) 0 gm TOP TID PRN PRN Reason: hand pain Methylprednisolone Sodium Succinate (Solu-Medrol) 125 mg IVPUSH ONETIME ONE Stop: 02/10/19 11:02 Last Admin: 02/10/19 11:13 Dose: 125 mg Methylprednisolone Sodium Succinate (Solu-Medrol) 40 mg IVPUSH Q12H [facility] Last Admin: 02/11/19 05:23 Dose: 40 mg Methylprednisolone Sodium Succinate (Solu-Medrol) 40 mg IVPUSH DAILY [facility] Last Admin: 02/12/19 07:43 Dose: 40 mg Metoprolol Tartrate (Lopressor) 75 mg PO BID [facility] Last Admin: 02/11/19 07:51 Dose: Not Given Metoprolol Tartrate (Lopressor) 5 mg IVPUSH Q8H [facility] Last Admin: 02/12/19 16:57 Dose: Not Given Miconazole (Desenex 2%) 0 gm TOP DAILY PRN PRN Reason: Rash Morphine Sulfate (Morphine) 2 mg IVPUSH ONETIME ONE Stop: 02/12/19 19:58 Last Admin: 02/12/19 21:16 Dose: 2 mg Morphine Sulfate (Morphine) 1 mg IVPUSH Q2H PRN PRN Reason: Pain Nitroglycerin (Nitrostat) 0.4 mg SL Q5M PRN PRN Reason: Chest Pain Saliva Substitution (Combo No.9 [Biotene]) 1 spray PO TID PRN PRN Reason: dry mouth Omeprazole (Omeprazole) 20 mg PO ACBREAKFAST [facility] Last Admin: 02/11/19 07:49 Dose: Not Given Ondansetron HCl (Zofran) 4 mg IV Q4H PRN PRN Reason: Nausea/Vomiting Pantoprazole Sodium (Protonix Iv) 40 mg IVPUSH DAILY [facility] Last Admin: 02/12/19 07:43 Dose: 40 mg Potassium Chloride (Potassium Chloride Solution) 30 meq PO TID@12,18,20 [facility] Last Admin: 02/11/19 00:42 Dose: Not Given Simethicone (Simethicone) 120 mg PO TID PRN PRN Reason: Gas Tramadol HCl (Ultram) 50 mg PO BID [facility] Last Admin: 02/11/19 07:51 Dose: Not Given Tramadol HCl (Ultram) 100 mg PO DAILY@1400 [facility] Last Admin: 02/10/19 16:54 Dose: Not Given Tramadol HCl (Ultram) 50 mg PO BID PRN PRN Reason: Pain Tramadol HCl (Ultram) 100 mg PO DAILY@1400 PRN PRN Reason: Pain Trazodone HCl (Trazodone) 12.5 mg PO BEDTIME [facility] Last Admin: 02/11/19 19:38 Dose: Not Given Venlafaxine HCl (Effexor) 75 mg PO BID [facility] Last Admin: 02/12/19 07:44 Dose: Not Given - Exam Physical Findings Comments:: time of [id number]
== END 2019-02-12 23:50 | disposition expired | DRG 871 ==
LOC: VM.ED 07:25 → VM.MS 11:03
PROVIDERS: ADMIT Family Medicine; ATTEND Internal Medicine
PROC: 5A09457 Assistance with Respiratory Ventilation, 24-96 Consecutive Hours, Continuous Positive Airway Pressure (ICD-10-PCS; principal; 2019-02-10)
DX: A41.9 Sepsis, unspecified organism (principal); J96.01 Acute respiratory failure with hypoxia; R65.21 Severe sepsis with septic shock; J68.0 Bronchitis and pneumonitis due to chemicals, gases, fumes and vapors; N17.9 Acute kidney failure, unspecified; E44.0 Moderate protein-calorie malnutrition; I50.30 Unspecified diastolic (congestive) heart failure; Z51.5 Encounter for palliative care; M19.91 Primary osteoarthritis, unspecified site; G20 Parkinson's disease; Z66 Do not resuscitate; J18.1 Lobar pneumonia, unspecified organism; R41.82 Altered mental status, unspecified; E87.2 Acidosis; E11.65 Type 2 diabetes mellitus with hyperglycemia; H40.9 Unspecified glaucoma; F39 Unspecified mood [affective] disorder; T38.0X5A Adverse effect of glucocorticoids and synthetic analogues, initial encounter; R09.02 Hypoxemia; G89.29 Other chronic pain; M79.7 Fibromyalgia; R11.2 Nausea with vomiting, unspecified; I95.9 Hypotension, unspecified; R57.1 Hypovolemic shock; I25.10 Atherosclerotic heart disease of native coronary artery without angina pectoris; E78.00 Pure hypercholesterolemia, unspecified; Z98.49 Cataract extraction status, unspecified eye; K21.9 Gastro-esophageal reflux disease without esophagitis; F32.9 Major depressive disorder, single episode, unspecified; K58.9 Irritable bowel syndrome, unspecified; M19.90 Unspecified osteoarthritis, unspecified site; M54.9 Dorsalgia, unspecified; M25.551 Pain in right hip; E03.9 Hypothyroidism, unspecified; E11.9 Type 2 diabetes mellitus without complications; E53.8 Deficiency of other specified B group vitamins; Z79.82 Long term (current) use of aspirin; Z88.8 Allergy status to other drugs, medicaments and biological substances; Z88.1 Allergy status to other antibiotic agents; Z88.5 Allergy status to narcotic agent; Z88.0 Allergy status to penicillin; Z79.899 Other long term (current) drug therapy; Z79.890 Hormone replacement therapy
CPT/HCPCS: 36415; 36600; 71045; 71250; 74176; 80048; 80053; 81001; 82803; 82962; 83605; 83735; 83880; 84484; 85025; 86140; 87040; 93005; 93010; 94640; 94660; 94760; 96361; 96374; 96375; 99284-GF; 99285-25; A9270-GY; C9113; J0456; J0696; J1170; J1650; J1940; J2060; J2270; J2920; J2930; J3490; J7040; J7050; J7120; J7620-GY